=== PATIENT | female | born 1955 | race Caucasian/White ===

== ENCOUNTER 2017-08-17 06:03 | Day surgery (SDC) | payer MEDICARE, MEDICAID ==
[2017-08-16 17:27] VITALS: BMI 21.2
[2017-08-17] MEDS ORDERED: Heparin 10,000 UNITS/1 ML VIAL ONE (06:41)
[2017-08-17] MEDS ORDERED: Diazepam 5 MG TAB ONE (06:56)
[2017-08-17] MEDS ORDERED: Midazolam HCl 2 mg/2 ml Vial ONE (07:17)
[2017-08-17] MEDS ORDERED: Fentanyl 100 MCG/2 ML VIAL ONE (07:19)
--- NOTE | 2017-08-17 07:21 | PRG ---
DATE OF SERVICE: 08/17/2017 HISTORY OF PRESENT ILLNESS: Ms. Love is scheduled for angiography today. There have been multiple d elays in her procedure due to multiple reasons. She initially came with a creatinine of 2.3 and not felt to be appropriate with proceeding with angiography. She then did not show for hydration. She w as also seen and evaluated by Nephrology for renal insufficiency. She then came in recently with a h emoglobin of 8.5 and again was postponed. Her toe continues to worsen. It was decided to proceed wi th angiography despite a hemoglobin less than 9. RECOMMENDATIONS: I discussed the procedure in full detail with Ms. Love. The risks included, but li mited to , stroke, [place], need for emergency surgery, loss of limb, bleeding, and infection, as wel l as a reaction to medication. All questions were answered. Also the risks of worsening renal contr ast nephropathy and need for transfusion. She appears better have a completely occluded left iliac a rtery with severe stenosis of the right iliac artery. The plan is to proceed with intervention of th e right iliac artery to increase perfusion. Unfortunately, she may likely lose her toe. She also co ntinues to smoke.
--- NOTE | 2017-08-17 08:30 | OP ---
DATE OF PROCEDURE: 08/17/2017 PREPROCEDURE DIAGNOSIS: Nonhealing ulcer. POST-PROCEDURE DIAGNOSIS: Severe peripheral vascular disease. PROCEDURE: 1. Aortogram. 2. Bilateral aortofemoral runoff. COMPLICATIONS: None. ESTIMATED BLOOD LOSS: Less than 10 mL. PROCEDURE IN DETAIL: The patient was prepped and draped in the sterile fashion. Accessing the right femoral artery under ultrasound guidance. Micropuncture was then plugged. A 5-Palestinian sheath was placed. FINDINGS: Aorta has no significant stenosis or aneurysm. There was significant calcification presen t. Right lower extremity, the common iliac and common femoral artery had no significant disease. The SF A has a focal 90% lesion in the proximal region. There is otherwise less than 50% stenosis of the SF A, popliteal artery. There is poor runoff noted to the infrapopliteal region. Left lower extremity - there is 100% occlusion of the left external iliac artery. Patient with nonhealing ulcer to the right toe. Initial CT scan did suggest significant stenosis pre sent to the common iliac artery which was not present on angiography. There was no significant gradi ent present. A few options present. May consider a popliteal approach versus a radial approach, alt joan the radial approach this is unlikely long enough for intervention. Popliteal approach would be the most appropriate. We will also consider CV Surgery consultation to assess toe.
[2017-08-17] MEDS ORDERED: Diazepam 5 MG TAB PO SCH (11:00)
[2017-08-17] MEDS ORDERED: traMADol HCl 50 MG TAB ONE (11:13)
[2017-08-17] MEDS ORDERED: Nitroglycerin 0.4 MG TAB (25 Tab Bottle) SL PRN (11:56)
[2017-08-17] MEDS ORDERED: Sodium Chloride 0.9% 1,000 ML IV SCH (11:56)
[2017-08-17] MEDS ORDERED: traMADol HCl 50 MG TAB PO PRN (11:56)
[2017-08-17] MEDS ORDERED: Acetaminophen/Codeine 30-300mg Tablet PO PRN ×2 (11:56)
[2017-08-17 12:50] LABS: Hemoglobin A1c 4.8 % (4.0-6.0)
[2017-08-17 12:53] LABS: #Eosinphils 0.1 thou/uL (0.0-0.7); #Lymphocytes 1.1 thou/uL (1.20-3.40); #Monocytes 0.4 thou/uL (0.11-0.59); #Neutrophils 4.2 thou/uL (1.40-6.50); %Basophils 0.6 % (0.0-1.0); %Eosinophils 2.1 % (0.0-10.0); %Lymphocytes 18.2 % (21.0-51.0); Hematocrit 26.2 % (36.0-47.0); Mean Platelet Volume 8.8 fL (7.4-10.4); Red Blood Cell (RBC) Count 2.78 mill/uL (4.20-5.40); White Blood Cell (WBC) Count 5.8 thou/uL (4.8-10.8)
[2017-08-17 13:08] LABS: Anion Gap 13 mmol/L (10-20); BUN (Urea Nitrogen) 25 mg/dL (9.8-20.1); Calc. Creatinine Clearance 44 mL/min (70-130); Calcium 8.1 mg/dL (7.8-10.44); Carbon Dioxide 20 mmol/L (23-31); Chloride 110 mmol/L (98-107); Estimated GFR-MDRD 49
[2017-08-17] MEDS ORDERED: Iopamidol 370 76% 100 ML VIAL ONE (17:30)
--- NOTE | 2017-08-21 08:42 | EKG ---
Test Reason : PREOP Blood Pressure : / mmHG Vent. Rate : 045 BPM Atrial Rate : 045 BPM P-R Int : 160 ms QRS Dur : 090 ms QT Int : 502 ms P-R-T Axes : 064 034 045 degrees QTc Int : 434 ms Marked sinus bradycardia Abnormal ECG When compared with ECG of 01-NOV-2016 13:22, Criteria for Septal infarct are no longer Present T wave amplitude has increased in Anterolateral leads Confirmed by Kendal RODARTE ([id number]) on 08/21/2017 8:41:33 AM Referred By: DAWIT Confirmed By:Kendal RODARTE
== END 2017-08-17 13:05 | disposition home or self-care (01) ==
LOC: CCL 06:03
PROVIDERS: ATTEND Internal Medicine Cardiovascular Disease
DX: E11.51 Type 2 diabetes mellitus with diabetic peripheral angiopathy without gangrene (principal); E11.621 Type 2 diabetes mellitus with foot ulcer; L97.519 Non-pressure chronic ulcer of other part of right foot with unspecified severity; E78.5 Hyperlipidemia, unspecified; I10 Essential (primary) hypertension; F31.9 Bipolar disorder, unspecified; D50.9 Iron deficiency anemia, unspecified; J44.9 Chronic obstructive pulmonary disease, unspecified; E03.9 Hypothyroidism, unspecified; M81.0 Age-related osteoporosis without current pathological fracture; R32 Unspecified urinary incontinence; K21.9 Gastro-esophageal reflux disease without esophagitis; Z79.84 Long term (current) use of oral hypoglycemic drugs; Z79.899 Other long term (current) drug therapy; Z91.040 Latex allergy status; Z88.0 Allergy status to penicillin; Z98.84 Bariatric surgery status; Z98.890 Other specified postprocedural states; Z87.891 Personal history of nicotine dependence; Z86.73 Personal history of transient ischemic attack (TIA), and cerebral infarction without residual deficits; I70.245 Atherosclerosis of native arteries of left leg with ulceration of other part of foot
CPT/HCPCS: 75630; 75710; 76942; 80048; 83036; 85025; 93005; C1769; 93010; 99152; J1644; J2250; J3010

== ENCOUNTER 2017-08-22 07:53 | Inpatient (IN) | payer MEDICARE, MEDICAID ==
--- NOTE | 2017-08-17 12:31 | HP ---
HISTORY OF PRESENT ILLNESS: This is a 62-year-old lady who lives alone and has had a nonhealing woun d on her right great toe for about 2 months for which she has seen Wound Care. She was referred to [facility] and a CT angiogram was done showing an occluded left common iliac and external iliac art ananya as well as a right superficial femoral artery occlusion. She was scheduled and canceled for allan ography on several occasions either due to elevated creatinine or significant anemia. She ultimately underwent angiography today demonstrating heavily calcified subtotal occlusion of the proximal right SFA. PAST MEDICAL HISTORY: Includes bipolar disorder, hypertension, diabetes mellitus, dyslipidemia. Oth erwise, she has had echocardiography showing EF of 55% with aortic valve sclerosis. She has had a ne gative stress test, but this was about 10 years ago. She has a history of morbid obesity for which s he has undergone gastric bypass. She has hypothyroidism, some urinary incontinence, chronic anemia. She is followed by Dr. Tim Link. SOCIAL HISTORY: She has not smoked since 2003. She lives alone, but has 2 children in the area. ALLERGIES: PENICILLIN and LATEX. PHYSICAL EXAMINATION: GENERAL: Pleasant lady in no distress. VITAL SIGNS: Blood pressure 100. Heart rate 60, recorded height 6 foot 5. She appears to weigh abo ut 200 pounds. NECK: Without carotid bruits. LUNGS: Clear to auscultation. CARDIAC: Regular rate and rhythm with a systolic murmur across the precordium. ABDOMEN: Obese, nontender with no masses. EXTREMITIES: She has a palpable femoral pulse on the right with a dressing and an absent left femora l pulse. She has no palpable distal pulses. She has dorsalis pedis pulses that are biphasic bilater ally and she has an ulcer on her great toe with some surrounding blue hue in the forefoot in this reg ion. It is very tender to palpation. MEDICATIONS: Include Toviaz 4 mg extended release once a day, levothyroxine 25 mcg daily, valacyclov ir 500 mg daily, rivastigmine 6 mg b.i.d., memantine 10 mg b.i.d., Lyrica 75 mg a day, Dexilant 60 mg daily, Crestor 5 at bedtime, carbidopa/levodopa 25/100 daily, amlodipine 10 a day, alendronate 70 mg weekly, Advair inhaler b.i.d., Latuda 40 mg daily. PLAN: After review of the films, it appears the patient would benefit from a right fem to super haleigh culate popliteal artery bypass. Her runoff appears adequate on her CT angiogram, it is not well visu alized on her normal angiogram. Informed consent has been obtained.
[2017-08-17 16:01] VITALS: BMI 21.2
[2017-08-22 08:51] LABS: #Lymphocytes 0.7 thou/uL (1.20-3.40); #Monocytes 0.4 thou/uL (0.11-0.59); #Neutrophils 6.2 thou/uL (1.40-6.50); %Basophils 0.1 % (0.0-1.0); %Eosinophils 0.5 % (0.0-10.0); %Lymphocytes 9.7 % (21.0-51.0); %Monocytes 5.5 % (0.0-10.0); Hematocrit 35.7 % (36.0-47.0); Mean Platelet Volume 8.6 fL (7.4-10.4); Red Blood Cell (RBC) Count 3.79 mill/uL (4.20-5.40); White Blood Cell (WBC) Count 7.3 thou/uL (4.8-10.8)
[2017-08-22 09:09] LABS: Anion Gap 12 mmol/L (10-20); BUN (Urea Nitrogen) 26 mg/dL (9.8-20.1); Calc. Creatinine Clearance 43 mL/min (70-130); Calcium 8.5 mg/dL (7.8-10.44); Carbon Dioxide 21 mmol/L (23-31); Chloride 110 mmol/L (98-107); Estimated GFR-MDRD 48; Hemoglobin A1c 4.7 % (4.0-6.0)
[2017-08-22] MEDS ORDERED: Protamine Sulfate 50 MG/5 ML VIAL ONE (09:13)
[2017-08-22] MEDS ORDERED: Heparin 5,000 UNITS/ML VIAL ONE (09:13)
[2017-08-22] MEDS ORDERED: Levofloxacin 500 mg/D5W 100 ml Premix Bag ONE (09:18)
[2017-08-22] MEDS ORDERED: Clindamycin/D5W 600 mg/50 ml Premix Bag ONE (09:18)
[2017-08-22] MEDS ORDERED: Fentanyl 100 MCG/2 ML VIAL ONE ×6 (09:32→16:13)
[2017-08-22] MEDS ORDERED: Promethazine HCl 25 MG/ML VIAL SLOW IVP PRN (13:27)
[2017-08-22] MEDS ORDERED: Ondansetron HCl/PF 4 MG/2 ML Vial IVP PRN ×2 (13:27→15:16)
[2017-08-22] MEDS ORDERED: Promethazine HCl 25 MG/ML VIAL IM PRN (13:27)
[2017-08-22] MEDS ORDERED: hydrALAZINE 20 MG/ML VIAL SLOW IVP PRN (13:29)
[2017-08-22] MEDS ORDERED: Heparin 10,000 UNITS/ 10 ML VIAL ONE (14:06)
[2017-08-22] MEDS ORDERED: Labetalol HCl 100 MG/20 ML VIAL ONE (14:06)
[2017-08-22] MEDS ORDERED: PHENYLEPHRINE-NS 100 MCG/ML 10 ML SYRINGE ONE (14:06)
[2017-08-22] MEDS ORDERED: Glycopyrrolate 0.2 MG/ML 5 ML SYRINGE ONE (14:06)
[2017-08-22] MEDS ORDERED: Propofol 200 MG/20 ML VIAL ONE (14:06)
[2017-08-22] MEDS ORDERED: ePHEDrine/0.9% NaCl/PF SYRINGE 50 mg/10 ml ONE (14:06)
[2017-08-22] MEDS ORDERED: Lidocaine 1% PF 5 ML VIAL ONE (14:06)
--- NOTE | 2017-08-22 14:11 | OP ---
DATE OF SERVICE: 08/22/2017 PREOPERATIVE DIAGNOSIS: Nonhealing wounds, right foot. POSTOPERATIVE DIAGNOSIS: Nonhealing wounds, right foot. PROCEDURE: Right femoral to suprageniculate popliteal artery bypass with reversed saphenous vein. SURGEON: Kingsley Alcaraz M.D. ANESTHESIA: General. ESTIMATED BLOOD LOSS: 100. DESCRIPTION OF PROCEDURE: After adequate anesthesia had been obtained, ultrasound was used to louise th e vein. An incision was made just above the knee and endovascular vein harvest was performed. Commo n femoral artery was then isolated as well as the trunks of 2 large profunda vessels. Calcification was heavy in the distal common femoral artery and this was avoided. The popliteal artery was exposed above the knee and carried down to about the level of the knee. The vein was then treated with liga tion of the branches and then brought through its tunnel and the proximal anastomosis performed to th e common femoral artery just lateral to a prior puncture site that had a ProGlide suture. Following completion of this, distal anastomosis was performed to a popliteal artery that did have some calcifi ed plaque at the site of anastomosis. Following completion of this, it should be noted that the lanec ent had been given 5000 units of heparin. There was a good pulse in the graft and the wounds were th en irrigated and closed in layers.
[2017-08-22] MEDS ORDERED: Sodium Chloride 0.9% 1,000 ML IV SCH (15:16)
[2017-08-22] MEDS ORDERED: Acetaminophen 325 MG TAB PO PRN (15:16)
[2017-08-22] MEDS ORDERED: Insulin Regular 300 UNITS/3 ML VIAL SC PRN (15:16)
[2017-08-22] MEDS ORDERED: Morphine PF 1 MG/ML SYR IVP PRN (15:46)
--- NOTE | 2017-08-22 18:00 | PDOC.PN ---
- Subjective Encounter Start Date: 08/22/17 Encounter Start Time: 17:56 Pt seen for management of medical comorbidities, including hypertension. Denies chest pain, shortness of breath, fevers or chills. - Objective MAR Reviewed: Yes Vital Signs & Weight: Weight Weight 120 lb Result Diagrams: 08/22/17 08:42 08/22/17 08:42 Additional Labs: Accuchecks 08/22/17 13:46 POC Glucose 73 Phys Exam - Physical Examination Constitutional: NAD HEENT: moist MMs, sclera anicteric, oral pharynx no lesions Neck: supple Respiratory: no wheezing, no rales, no rhonchi, clear to auscultation bilateral Cardiovascular: RRR Gastrointestinal: soft, non-tender Blackened R toenailbeds Neurological: moves all 4 limbs Psychiatric: normal affect Deviation from normal: erythema over R distal foot, skin tear over l shoulder Dx/Plan (1) HTN (hypertension) Code(s): I10 - ESSENTIAL (PRIMARY) HYPERTENSION Status: Chronic (2) Diabetes mellitus Code(s): E11.9 - TYPE 2 DIABETES MELLITUS WITHOUT COMPLICATIONS Status: Chronic (3) Dyslipidemia Code(s): E78.5 - HYPERLIPIDEMIA, UNSPECIFIED Status: Chronic (4) Hypothyroidism Code(s): E03.9 - HYPOTHYROIDISM, UNSPECIFIED Status: Chronic - Plan PT/OT, out of bed/ambulate * .Monitor vital signs, titrate antihypertensives as needed. * Had a lengthy discussion with pt re: diabetes mellitus management. Pt intiially did not wish to have accuchecks. Her HbContinue statin.PT/OTA1c is 4.7. Explained to pt that her blood sugars may be high during hospitalization ( due to stress hormone release) and it is recommended to control blood sugars to promote healing. Pt agreeable for accuchecks, check for 24h and reassess. * Continue synthroid. * PT/OT * Review of Systems - Review of Systems Constitutional: negative: Fever, Chills, Sweats Respiratory: negative: Cough, Dry, Shortness of Breath, Hemoptysis, SOB with Excertion, Pleuritic Pain, Sputum, Wheezing Cardiovascular: negative: Chest Pain, Palpitations, Orthopnea, Paroxysmal Noc. Dyspnea, Edema, Light Headedness Musculoskeletal: Leg Pain - Medications/Allergies Allergies/Adverse Reactions: Allergies Allergy/AdvReac Type Severity Reaction Status Date / Time latex Allergy Verified 08/16/17 17:26 Penicillins Allergy Verified 08/16/17 17:26 Medications: Current Medications Acetaminophen (Tylenol) 650 mg PO Q4H PRN PRN Reason: Fever > 101.5,TIMMONS, or mild pain Hydrocodone Bitart/Acetaminophen ([place] 5/325) 1 tab PO Q4H PRN PRN Reason: Mild Pain (1-3) Albuterol/Ipratropium (Duoneb) 3 ml NEB S1IN-VT PRN PRN Reason: Wheezing Amlodipine Besylate (Norvasc) 10 mg PO DAILY [facility] Aspirin (Aspirin Chewable) 81 mg PO QAM [facility] Bupropion HCl (Wellbutrin Sr) 100 mg PO BID [facility] Carbidopa/Levodopa (Sinemet 25-100) 1 tab PO TID [facility] Hydralazine HCl (Apresoline) 10 mg SLOW IVP Q15MIN PRN PRN Reason: SBP Greater Than 170 Clindamycin Phosphate/Dextrose (600 mg/ Device) 50 mls @ 100 mls/hr IVPB 0400, 1000,1600,2200 [facility] Stop: 08/23/17 10:29 Levofloxacin 500 mg/ Device 100 mls @ 100 mls/hr IVPB Q24HR [facility] Sodium Chloride (Normal Saline 0.9%) 1,000 mls @ 50 mls/hr IV .Q20H [facility] Insulin Human Regular (Humulin R) 0 units SC .MILD SLIDING SCALE PRN PRN Reason: Mild Correctional Scale Levothyroxine Sodium (Synthroid) 25 mcg PO DAILY [facility] Methylphenidate HCl (Ritalin) 10 mg PO BID [facility] Morphine Sulfate/Sodium Chloride (Morphine 0.9% Nacl Pf 2 Mg/2ml) 2 mg IVP Q4H PRN PRN Reason: PAIN-MOD/SEV Ondansetron HCl (Zofran) 4 mg IVP Q6H PRN PRN Reason: Nausea/Vomiting Pantoprazole Sodium (Protonix) 40 mg PO DAILY [facility] Vortioxetine Hydrobromide [ Trintellix] 20 Mg Tab 0 each PO DAILY [facility] Empagliflozin [ (Jardiance] 25 Mg Tab) 0 each PO DAILY [facility] Polyethylene Glycol (Miralax) 17 gm PO DAILY [facility] Pregabalin (Lyrica) 75 mg PO TID [facility] Rivastigmine Tartrate (Exelon) 6 mg PO BID-WM [facility] Rosuvastatin Calcium (Crestor) 5 mg PO DAILY [facility] Tramadol HCl (Ultram) 50 mg PO Q6H PRN PRN Reason: Mild Breakthrough Pain
[2017-08-22] MEDS: traMADol HCl 50 MG TAB PO PRN (18:13)
[2017-08-22] MEDS: Morphine 2 mg/2ml in 0.9% NaCl PF SYRINGE IVP PRN (18:13)
[2017-08-22] MEDS: Clindamycin/D5W 600 MG in Premix Bag 1 BAG IVPB SCH ×2 (18:14→23:08)
[2017-08-22] MEDS: Rivastigmine Tartrate 1.5 MG CAP PO SCH (18:14)
[2017-08-22] MEDS: Pregabalin 75 MG CAP PO SCH (20:37)
[2017-08-22] MEDS: Carbidopa/Levodopa 25-100 mg Tablet PO SCH (20:38)
[2017-08-22] MEDS: Bupropion 100 MG SR TAB PO SCH (20:38)
[2017-08-22] MEDS ORDERED: BUSPIRONE HCL PO SCH (21:00)
[2017-08-22] MEDS ORDERED: Simvastatin 20 MG TAB PO SCH (21:00)
[2017-08-22] MEDS: TROSPIUM 20 MG TABLET PO SCH (21:01)
[2017-08-22 22:13] LABS: Anion Gap 9 mmol/L (10-20); BUN (Urea Nitrogen) 23 mg/dL (9.8-20.1); Calc. Creatinine Clearance 42 mL/min (70-130); Calcium 7.9 mg/dL (7.8-10.44); Carbon Dioxide 24 mmol/L (23-31); Chloride 112 mmol/L (98-107); Estimated GFR-MDRD 47; Magnesium 1.9 mg/dL (1.6-2.6)
[2017-08-23] MEDS ORDERED: Cyclobenzaprine 10 MG TAB PO PRN (00:30)
[2017-08-23] MEDS: Morphine 2 mg/2ml in 0.9% NaCl PF SYRINGE IVP PRN ×3 (01:00→09:24)
[2017-08-23] MEDS: traMADol HCl 50 MG TAB PO PRN (02:05)
[2017-08-23] MEDS: HYDROcodone/Acetaminophen 5/325 mg Tablet PO PRN ×2 (03:52→08:23)
[2017-08-23] MEDS: Clindamycin/D5W 600 MG in Premix Bag 1 BAG IVPB SCH ×2 (03:53→10:03)
[2017-08-23] MEDS: Mometasone/Formoterol 120 PUFF INHALER INH SCH ×2 (07:16→19:00)
[2017-08-23] MEDS: Rivastigmine Tartrate 1.5 MG CAP PO SCH ×2 (08:21→17:16)
[2017-08-23] MEDS: Bupropion 100 MG SR TAB PO SCH ×2 (08:21→21:44)
[2017-08-23] MEDS: Polyethylene Glycol 3350 17 GM Packet PO SCH ×2 (08:22→08:38)
[2017-08-23] MEDS: Lurasidone HCl 40 MG TABLET PO SCH (08:22)
[2017-08-23] MEDS: Levothyroxine Sodium 25 MCG TAB PO SCH (08:22)
[2017-08-23] MEDS: Pregabalin 75 MG CAP PO SCH ×3 (08:23→20:08)
[2017-08-23] MEDS: Carbidopa/Levodopa 25-100 mg Tablet PO SCH (08:24)
[2017-08-23] MEDS ORDERED: FLU VACC QS2017-18 36 mo. & older 0.5 ML SYRINGE IM ONE (09:00)
[2017-08-23] MEDS ORDERED: Amlodipine 10 MG TAB PO SCH (09:00)
[2017-08-23] MEDS: busPIRone HCl 10 MG TAB PO SCH ×2 (09:22→20:08)
[2017-08-23] MEDS: TROSPIUM 20 MG TABLET PO SCH ×2 (09:57→20:30)
--- NOTE | 2017-08-23 10:33 | PDOC.PN ---
- Subjective Encounter Start Date: 08/23/17 Encounter Start Time: 08:20 -: old records requested/rev Patient seen and examined. No new complaints. No overnight events - Objective MAR Reviewed: Yes Vital Signs & Weight: Vital Signs (12 hours) Temp Pulse Resp BP Pulse Ox 08/23/17 08:23 98.2 F 60 14 98 08/23/17 07:47 98.2 F 60 14 171/82 H 98 08/23/17 04:56 98.1 F 66 20 100 08/23/17 00:00 98.1 F 68 18 130/69 Weight Weight 120 lb I&O: 08/22/17 08/23/17 08/24/17 06:59 06:59 06:59 Intake Total 999 Output Total 2049 Balance -1050 Result Diagrams: 08/22/17 08:42 08/22/17 21:45 Additional Labs: Accuchecks 08/23/17 08/22/17 08/22/17 06:22 21:52 13:46 POC Glucose 178 H 163 H 73 Phys Exam - Physical Examination Constitutional: NAD HEENT: PERRLA, moist MMs, sclera anicteric Neck: no JVD, supple Respiratory: no wheezing, no rales, no rhonchi Cardiovascular: RRR, no rub SM+ Gastrointestinal: soft, non-tender, no distention, positive bowel sounds Musculoskeletal: no edema, pulses present right great toe tip black Neurological: non-focal, normal sensation Psychiatric: normal affect, A&O x 3 Skin: no rash, normal turgor Dx/Plan (1) S/P femoral-popliteal bypass surgery Code(s): Z95.828 - PRESENCE OF OTHER VASCULAR IMPLANTS AND GRAFTS Status: Acute (2) Anemia, normocytic normochromic Code(s): D64.9 - ANEMIA, UNSPECIFIED Status: Chronic (3) Anxiety and depression Code(s): F41.8 - OTHER SPECIFIED ANXIETY DISORDERS Status: Chronic (4) Dementia Code(s): F03.90 - UNSPECIFIED DEMENTIA WITHOUT BEHAVIORAL DISTURBANCE Status: Chronic (5) Diabetes mellitus Code(s): E11.9 - TYPE 2 DIABETES MELLITUS WITHOUT COMPLICATIONS Status: Chronic (6) Dyslipidemia Code(s): E78.5 - HYPERLIPIDEMIA, UNSPECIFIED Status: Chronic (7) GERD (gastroesophageal reflux disease) Code(s): K21.9 - GASTRO-ESOPHAGEAL REFLUX DISEASE WITHOUT ESOPHAGITIS Status: Chronic (8) HTN (hypertension) Code(s): I10 - ESSENTIAL (PRIMARY) HYPERTENSION Status: Chronic (9) Hypothyroidism Code(s): E03.9 - HYPOTHYROIDISM, UNSPECIFIED Status: Chronic (10) Parkinson disease Code(s): G20 - PARKINSON'S DISEASE Status: Chronic - Plan cont current plan of care * continue selected home meds * medication reviewed as below * symptomatic treatment * surgical site clean and healthy * wound care * post op care * overall doing well. Review of Systems - Review of Systems ENT: negative: Ear Pain, Ear Discharge, Nose Pain, Nose Discharge, Nose Congestion, Mouth Pain, Mouth Swelling, Throat Pain, Throat Swelling, Other Respiratory: negative: Cough, Dry, Shortness of Breath, Hemoptysis, SOB with Excertion, Pleuritic Pain, Sputum, Wheezing Cardiovascular: negative: Chest Pain, Palpitations, Orthopnea, Paroxysmal Noc. Dyspnea, Edema, Light Headedness, Other Gastrointestinal: negative: Nausea, Vomiting, Abdominal Pain, Diarrhea, Constipation, Melena, Hematochezia, Other Genitourinary: negative: Dysuria, Frequency, Incontinence, Hematuria, Retention , Other Musculoskeletal: negative: Neck Pain, Shoulder Pain, Arm Pain, Back Pain, Hand Pain, Leg Pain, Foot Pain, Other Skin: negative: Rash, Lesions, Jamel, Bruising, Other - Medications/Allergies Allergies/Adverse Reactions: Allergies Allergy/AdvReac Type Severity Reaction Status Date / Time latex Allergy Verified 08/16/17 17:26 Penicillins Allergy Verified 08/16/17 17:26 Medications: Current Medications Acetaminophen (Tylenol) 650 mg PO Q4H PRN PRN Reason: Fever > 101.5,TIMMONS, or mild pain Hydrocodone Bitart/Acetaminophen ([place] 5/325) 1 tab PO Q4H PRN PRN Reason: Mild Pain (1-3) Last Admin: 08/23/17 08:23 Dose: 1 tab Albuterol/Ipratropium (Duoneb) 3 ml NEB [id number] PRN PRN Reason: Wheezing Alendronate Sodium (Fosamax) 70 mg PO Q7D@0600 [facility] Aspirin (Aspirin Chewable) 81 mg PO QAM [facility] Last Admin: 08/23/17 08:24 Dose: 81 mg Bupropion HCl (Wellbutrin Sr) 100 mg PO BID [facility] Last Admin: 08/23/17 08:21 Dose: 100 mg Buspirone HCl (Buspar) 45 mg PO BID [facility] Last Admin: 08/23/17 09:22 Dose: 45 mg Carbidopa/Levodopa (Sinemet 25-100) 1 tab PO TID [facility] Last Admin: 08/23/17 08:24 Dose: 1 tab Cyclobenzaprine HCl (Flexeril) 5 mg PO Q8H PRN PRN Reason: Muscle Spasm Last Admin: 08/23/17 00:46 Dose: 5 mg Hydralazine HCl (Apresoline) 10 mg SLOW IVP Q15MIN PRN PRN Reason: SBP Greater Than 170 Levofloxacin 500 mg/ Device 100 mls @ 100 mls/hr IVPB Q24HR [facility] Last Admin: 08/23/17 08:22 Dose: 100 mls Insulin Human Regular (Humulin R) 0 units SC .MILD SLIDING SCALE PRN PRN Reason: Mild Correctional Scale Levothyroxine Sodium (Synthroid) 25 mcg PO DAILY [facility] Last Admin: 08/23/17 08:22 Dose: 25 mcg Lurasidone HCl (Latuda) 40 mg PO DAILY [facility] Last Admin: 08/23/17 08:22 Dose: 40 mg Memantine (Namenda) 10 mg PO BID [facility] Last Admin: 08/23/17 08:24 Dose: 10 mg Methylphenidate HCl (Ritalin) 10 mg PO BID [facility] Last Admin: 08/23/17 09:24 Dose: 10 mg Mometasone Furoate/Formoterol Fumar (Dulera 200 Mcg/5 Mcg Inhaler) 2 puff INH BID-RT [facility] Last Admin: 08/23/17 07:16 Dose: 2 puff Morphine Sulfate/Sodium Chloride (Morphine 0.9% Nacl Pf 2 Mg/2ml) 2 mg IVP Q4H PRN PRN Reason: PAIN-MOD/SEV Last Admin: 08/23/17 09:24 Dose: 2 mg Ondansetron HCl (Zofran) 4 mg IVP Q6H PRN PRN Reason: Nausea/Vomiting Pantoprazole Sodium (Protonix) 40 mg PO DAILY [facility] Last Admin: 08/23/17 08:24 Dose: 40 mg Vortioxetine Hydrobromide [ Trintellix] 20 Mg Tab 0 each PO DAILY [facility] Empagliflozin [ (Jardiance] 25 Mg Tab) 0 each PO DAILY [facility] Polyethylene Glycol (Miralax) 17 gm PO DAILY [facility] Last Admin: 08/23/17 08:38 Dose: Not Given Pregabalin (Lyrica) 75 mg PO TID [facility] Last Admin: 08/23/17 08:23 Dose: 75 mg Rivastigmine Tartrate (Exelon) 6 mg PO BID-WM [facility] Last Admin: 08/23/17 08:21 Dose: 6 mg Rosuvastatin Calcium (Crestor) 5 mg PO DAILY [facility] Last Admin: 08/23/17 09:57 Dose: 5 mg Tramadol HCl (Ultram) 50 mg PO Q6H PRN PRN Reason: Mild Breakthrough Pain Last Admin: 08/23/17 02:05 Dose: 50 mg Trospium (Trospium Chloride) 20 mg PO BID [facility] Last Admin: 08/23/17 09:57 Dose: 20 mg Valacyclovir HCl (Valtrex) 500 mg PO DAILY [facility] Last Admin: 08/23/17 08:22 Dose: 500 mg
[2017-08-23] MEDS ORDERED: Nitroglycerin 0.4 MG TAB (25 Tab Bottle) SL PRN (12:32)
[2017-08-23] MEDS ORDERED: HYDROcodone/Acetaminophen 10/325 mg Tablet PO PRN (12:32)
[2017-08-23] MEDS ORDERED: Diphenoxylate HCl/Atropine Tablet PO PRN (12:32)
[2017-08-23] MEDS ORDERED: Non-Formulary Item 1 EACH (Tizanidine Hcl [Tizanidine Hcl] 4 MG) PO PRN (12:32)
[2017-08-23] MEDS ORDERED: Acetaminophen/Codeine 30-300mg Tablet PO PRN (12:32)
[2017-08-23] MEDS ORDERED: ALPRAZolam 1 MG TAB PO PRN (14:09)
[2017-08-23] MEDS ORDERED: tiZANidine HCl 4 MG TAB PO PRN (14:16)
[2017-08-23] MEDS ORDERED: Morphine PF 1 MG/ML SYR IV PRN (14:38)
[2017-08-23] MEDS: Carbidopa/Levodopa 25-250 mg Tablet PO SCH ×2 (14:55→20:10)
[2017-08-23] MEDS: hydrOXYzine 25 MG TAB PO SCH ×2 (14:56→20:10)
[2017-08-23] MEDS ORDERED: Fluticasone Propionate Nasal Spray 16 gm Bottle NASAL PRN (15:04)
[2017-08-23] MEDS: HYDROcodone/Acetaminophen 10/325 mg Tablet PO PRN (18:17)
[2017-08-23] MEDS: Metoprolol Tartrate 25 MG TAB PO SCH (20:11)
[2017-08-23] MEDS: Morphine 4 MG/ML VIAL SLOW IVP PRN (20:31)
[2017-08-23] MEDS ORDERED: METHYLPHENIDATE HCL 20 MG PO SCH (21:00)
[2017-08-24] MEDS: HYDROcodone/Acetaminophen 10/325 mg Tablet PO PRN ×2 (00:30→16:54)
[2017-08-24] MEDS: Morphine 4 MG/ML VIAL SLOW IVP PRN ×2 (02:08→08:21)
[2017-08-24] MEDS: Levothyroxine Sodium 25 MCG TAB PO SCH (08:12)
[2017-08-24] MEDS: busPIRone HCl 10 MG TAB PO SCH (08:12)
[2017-08-24] MEDS: Pregabalin 75 MG CAP PO SCH ×2 (08:13→15:03)
[2017-08-24] MEDS: Metoprolol Tartrate 25 MG TAB PO SCH (08:13)
[2017-08-24] MEDS: Carbidopa/Levodopa 25-250 mg Tablet PO SCH ×2 (08:13→15:04)
[2017-08-24] MEDS: Rivastigmine Tartrate 1.5 MG CAP PO SCH ×2 (08:14→17:39)
[2017-08-24] MEDS: hydrOXYzine 25 MG TAB PO SCH ×2 (08:14→15:04)
[2017-08-24] MEDS: Lurasidone HCl 40 MG TABLET PO SCH (08:14)
[2017-08-24] MEDS: Polyethylene Glycol 3350 17 GM Packet PO SCH (08:16)
[2017-08-24] MEDS: Bupropion 100 MG SR TAB PO SCH (08:21)
[2017-08-24] MEDS: Mometasone/Formoterol 120 PUFF INHALER INH SCH (08:49)
[2017-08-24] MEDS ORDERED: SAXAGLIPTIN HCL 2.5 MG PO SCH (09:00)
[2017-08-24] MEDS ORDERED: Saxagliptin Hcl [Onglyza] 2.5 MG PO SCH (09:00)
[2017-08-24] MEDS ORDERED: Alogliptin Benzoate 25 MG TABLET PO SCH (09:00)
[2017-08-24] MEDS ORDERED: Insulin Detemir 100 UNITS/ML 20 UNITS in Pre-Filled Syringe 1 EACH SC SCH (09:00)
[2017-08-24] MEDS ORDERED: Montelukast Sodium 10 mg Tablet PO SCH (09:00)
[2017-08-24] MEDS ORDERED: INSULIN GLARGINE HUM REC ANLOG 20 UNIT SQ SCH (09:00)
[2017-08-24] MEDS ORDERED: Amlodipine 5 MG TAB PO SCH (09:00)
[2017-08-24] MEDS: TROSPIUM 20 MG TABLET PO SCH (11:45)
--- NOTE | 2017-08-24 12:05 | PDOC.PN ---
- Subjective Encounter Start Date: 08/24/17 Encounter Start Time: 10:00 Subjective: no sob or chest pain -: wants 2 tabs of narco, nasal spray and increase freq of xanax - Objective MAR Reviewed: Yes Vital Signs & Weight: Vital Signs (12 hours) Temp Pulse Resp BP BP Pulse Ox 08/24/17 11:56 97.9 F 61 16 98 08/24/17 08:49 79 16 97 08/24/17 08:13 98.1 F 71 18 127/78 96 08/24/17 07:49 98.1 F 71 18 127/78 96 Weight Admit Weight 120 lb Weight 120 lb I&O: 08/23/17 08/24/17 08/25/17 06:59 06:59 06:59 Intake Total 999 2580 Output Total 2049 4603 Balance -1049 Result Diagrams: 08/22/17 08:42 08/22/17 21:45 Additional Labs: Accuchecks 08/24/17 08/23/17 11:26 15:47 POC Glucose 106 135 H Phys Exam - Physical Examination HEENT: PERRLA, moist MMs Neck: no JVD, supple Respiratory: no wheezing, no rales Cardiovascular: RRR murmur+ Gastrointestinal: soft, no distention, positive bowel sounds Musculoskeletal: pulses present right leg has some mild edema at surgical sites Neurological: non-focal, moves all 4 limbs Psychiatric: A&O x 3 Dx/Plan (1) S/P femoral-popliteal bypass surgery Code(s): Z95.828 - PRESENCE OF OTHER VASCULAR IMPLANTS AND GRAFTS Status: Acute Comment: right LE on 08/22/2017 (2) Anemia, normocytic normochromic Code(s): D64.9 - ANEMIA, UNSPECIFIED Status: Chronic (3) Anxiety and depression Code(s): F41.8 - OTHER SPECIFIED ANXIETY DISORDERS Status: Chronic (4) Diabetes mellitus Code(s): E11.9 - TYPE 2 DIABETES MELLITUS WITHOUT COMPLICATIONS Status: Chronic Qualifiers: Diabetes mellitus type: type 2 Diabetes mellitus complication status: with neurologic complications Diabetes mellitus complication detail: with polyneuropathy Diabetes mellitus skilled nursing insulin use: with skilled nursing use Qualified Code(s): E11.42 - Type 2 diabetes mellitus with diabetic polyneuropathy; Z79.4 - halfway (current) use of insulin; Z79.4 - keno terminal operator ( current) use of insulin; Z79.4 - halfway (current) use of insulin; Z79.4 - halfway (current) use of insulin (5) Dyslipidemia Code(s): E78.5 - HYPERLIPIDEMIA, UNSPECIFIED Status: Chronic (6) GERD (gastroesophageal reflux disease) Code(s): K21.9 - GASTRO-ESOPHAGEAL REFLUX DISEASE WITHOUT ESOPHAGITIS Status: Chronic Qualifiers: Esophagitis presence: esophagitis presence not specified Qualified Code(s) : K21.9 - Gastro-esophageal reflux disease without esophagitis (7) HTN (hypertension) Code(s): I10 - ESSENTIAL (PRIMARY) HYPERTENSION Status: Chronic Qualifiers: Hypertension type: essential hypertension Qualified Code(s): I10 - Essential (primary) hypertension (8) Hypothyroidism Code(s): E03.9 - HYPOTHYROIDISM, UNSPECIFIED Status: Chronic Qualifiers: Hypothyroidism type: unspecified Qualified Code(s): E03.9 - Hypothyroidism , unspecified (9) Parkinson disease Code(s): G20 - PARKINSON'S DISEASE Status: Chronic (10) Chronic pain syndrome Code(s): G89.4 - CHRONIC PAIN SYNDROME Status: Chronic (11) Polypharmacy Code(s): Z79.899 - OTHER INTERMEDIATE (CURRENT) DRUG THERAPY Status: Chronic - Plan Pt is already on multiple pain/psychotropic meds -: she is currently on fentanyl patch, narco, morphine, lyrica, ultram -: she is also on ritalin and sinemet -: has amb with PT per patient -: dc plan per CTS advice, she has to keep her surgical site clean * . Pt is at risk for resp failure from polypharmacy, although she has been on them for long time (per patient). Review of Systems - Medications/Allergies Allergies/Adverse Reactions: Allergies Allergy/AdvReac Type Severity Reaction Status Date / Time latex Allergy Verified 08/16/17 17:26 Penicillins Allergy Verified 08/16/17 17:26 Medications: Current Medications Acetaminophen (Tylenol) 650 mg PO Q4H PRN PRN Reason: Fever > 101.5,TIMMONS, or mild pain Acetaminophen/Codeine Phosphate (Tylenol #3) 1 tab PO Q6H PRN PRN Reason: Moderate Pain (4-6) Last Admin: 08/24/17 06:51 Dose: 1 tab Hydrocodone Bitart/Acetaminophen (Montrose 5/325) 1 tab PO Q4H PRN PRN Reason: Mild Pain (1-3) Last Admin: 08/23/17 08:23 Dose: 1 tab Hydrocodone Bitart/Acetaminophen (Montrose 10/325) 1 tab PO Q6H PRN PRN Reason: Pain Last Admin: 08/24/17 00:30 Dose: 1 tab Albuterol/Ipratropium (Duoneb) 3 ml NEB [id number] PRN PRN Reason: Wheezing Alendronate Sodium (Fosamax) 70 mg PO Q7D@0600 [facility] Alogliptin Benzoate (Alogliptin) 12.5 mg PO DAILY [facility] Last Admin: 08/24/17 08:11 Dose: 12.5 mg Alprazolam (Xanax) 2 mg PO QID PRN PRN Reason: Anxiety Last Admin: 08/24/17 00:33 Dose: 2 mg Amlodipine Besylate (Norvasc) 5 mg PO DAILY [facility] Last Admin: 08/24/17 08:13 Dose: 5 mg Aspirin (Aspirin Chewable) 81 mg PO QAM [facility] Last Admin: 08/24/17 08:13 Dose: 81 mg Bupropion HCl (Wellbutrin Sr) 100 mg PO BID [facility] Last Admin: 08/24/17 08:21 Dose: 100 mg Buspirone HCl (Buspar) 45 mg PO BID [facility] Last Admin: 08/24/17 08:12 Dose: 45 mg Carbidopa/Levodopa (Sinemet 25-250) 1 tab PO TID [facility] Last Admin: 08/24/17 08:13 Dose: 1 tab Carisoprodol (Soma) 350 mg PO TID PRN PRN Reason: Muscle Spasm Diphenoxylate HCl/Atropine (Lomotil) 2 tab PO QID PRN PRN Reason: Diarrhea/Loose Stools Fentanyl (Duragesic) 25 mcg TD Q3D@1500 [facility] Last Admin: 08/23/17 14:53 Dose: 25 mcg Fluticasone Propionate (Flonase Nasal Cecil) 0 gm NASAL BID PRN PRN Reason: Congestion Last Admin: 08/23/17 20:05 Dose: 1 spr Fluvoxamine Maleate (Luvox) 100 mg PO HS [facility] Last Admin: 08/23/17 20:10 Dose: 100 mg Hydralazine HCl (Apresoline) 10 mg SLOW IVP Q15MIN PRN PRN Reason: SBP Greater Than 170 Hydroxyzine HCl (Atarax) 25 mg PO TID [facility] Last Admin: 08/24/17 08:14 Dose: 25 mg Levofloxacin 500 mg/ Device 100 mls @ 100 mls/hr IVPB Q24HR [facility] Last Admin: 08/24/17 08:20 Dose: 100 mls Insulin Detemir 20 units/ (Miscellaneous Medication) 0.2 mls @ 0 mls/hr SC QAM [facility] Last Admin: 08/24/17 11:40 Dose: Not Given Insulin Human Regular (Humulin R) 0 units SC .MILD SLIDING SCALE PRN PRN Reason: Mild Correctional Scale Levothyroxine Sodium (Synthroid) 25 mcg PO DAILY [facility] Last Admin: 08/24/17 08:12 Dose: 25 mcg Lurasidone HCl (Latuda) 40 mg PO DAILY [facility] Last Admin: 08/24/17 08:14 Dose: 40 mg Memantine (Namenda) 10 mg PO BID [facility] Last Admin: 08/24/17 08:13 Dose: 10 mg Methylphenidate HCl (Ritalin) 20 mg PO BID [facility] Last Admin: 08/24/17 11:45 Dose: 20 mg Metoprolol Tartrate (Lopressor) 25 mg PO BID [facility] Last Admin: 08/24/17 08:13 Dose: 25 mg Mometasone Furoate/Formoterol Fumar (Dulera 200 Mcg/5 Mcg Inhaler) 2 puff INH BID-RT [facility] Last Admin: 08/24/17 08:49 Dose: 2 puff Montelukast Sodium (Singulair) 10 mg PO DAILY [facility] Last Admin: 08/24/17 08:14 Dose: 10 mg Morphine Sulfate (Morphine) 2 mg SLOW IVP Q4H PRN PRN Reason: PAIN 4-10 Last Admin: 08/24/17 08:21 Dose: 2 mg Nitroglycerin (Nitrostat) 0.4 mg SL Q5MIN PRN PRN Reason: Chest Pain Ondansetron HCl (Zofran) 4 mg IVP Q6H PRN PRN Reason: Nausea/Vomiting Pantoprazole Sodium (Protonix) 40 mg PO DAILY [facility] Last Admin: 08/24/17 08:13 Dose: 40 mg Vortioxetine Hydrobromide [ Trintellix] 20 Mg Tab 0 each PO DAILY [facility] Empagliflozin [ (Jardiance] 25 Mg Tab) 0 each PO DAILY [facility] Polyethylene Glycol (Miralax) 17 gm PO DAILY [facility] Last Admin: 08/24/17 08:16 Dose: Not Given Pregabalin (Lyrica) 75 mg PO TID [facility] Last Admin: 08/24/17 08:13 Dose: 75 mg Rivastigmine Tartrate (Exelon) 6 mg PO BID[facility] Last Admin: 08/24/17 08:14 Dose: 6 mg Rosuvastatin Calcium (Crestor) 5 mg PO QPM [facility] Last Admin: 08/23/17 20:30 Dose: 5 mg Sertraline HCl (Zoloft) 100 mg PO DAILY [facility] Last Admin: 08/24/17 11:45 Dose: 100 mg Sodium Chloride (Flush - Normal Saline) 10 ml IVF Q12HR [facility] Last Admin: 08/24/17 08:16 Dose: 10 ml Sodium Chloride (Flush - Normal Saline) 10 ml IVF PRN PRN PRN Reason: Saline Flush Tizanidine HCl (Zanaflex) 4 mg PO TIDPRN PRN PRN Reason: Pain Tramadol HCl (Ultram) 50 mg PO Q6H PRN PRN Reason: Mild Breakthrough Pain Last Admin: 08/23/17 02:05 Dose: 50 mg Trospium (Trospium Chloride) 20 mg PO BID [facility] Last Admin: 08/24/17 11:45 Dose: 20 mg Valacyclovir HCl (Valtrex) 500 mg PO DAILY [facility] Last Admin: 08/24/17 08:11 Dose: 500 mg
[2017-08-24 16:00] VITALS: BP 114/72; TEMP 98.1
--- NOTE | 2017-08-25 06:05 | DIS ---
HOSPITAL COURSE: Patient was admitted to the hospital on 08/22/2017 where she underwent a right femo ral to popliteal artery bypass with first saphenous vein. Postoperatively, she had excellent Doppler signals in both DP and PT. She had some mild bruising in her leg and was otherwise doing well. She has a medicine list that was not able to be deciphered, and at this time there is no medicine reconc iliation that will be taken care of, and I will not write her any prescriptions due to the polypharma cy that she on. I will leave this up to Dr. Link and she knows what she is supposed to be taking. We will follow her up in 3 to 4 weeks to see if her toe heels or requires further surgical intervent ion. I have discussed wound care with the patient and she understands how to take care of her wounds .
--- NOTE | 2017-08-25 11:29 | PQF ---
DIETER MAY JAMES M MD [id number] [facility] 333 [id number] CLINICAL DOCUMENTATION CLARIFICATION FORM: POST DISCHARGE Please clarify if documented "Occluded" lower extremity arteries can be further specified. Please check appropriate box(s): [ ] Complete occlusion of artery due to [ ] Chronic total occlusion artery due to [ ] Partial occlusion artery due to [ ] Acute occlusion artery due to __ [ ] Other diagnosis [ ] Unable to determine In addition, please specify: Present on Admission (POA): [ ] Yes [ ] No [ ] Unable to determine Please exercise your independent, professional judgment in responding to the clarification form. Thank you H&P; "Occluded Left Common Iliac and External Iliac artery as well as a Right superficial Femoral Artery occlusion". "She underwent angiography today demonstrating heavily calcified subtotal occlusion of the proximal right SFA". "She has a palpable femoral pulse on the right with a dressing and an absent left femoral pulse. She has no palpable distal pulses." "..she has an ulcer on her right great toe with some surrounding blue hue in the forefoot in this region." PROCEDURE; "Right femoral to suprageniculate popliteal artery bypass with reversed saphenous vein." (This form is maintained as a part of the permanent medical record) 2014 [employer] All Rights Reserved [email or web address] [phone] [email or web address]
[2017-08-29] MEDS ORDERED: Alendronate Sodium 70 mg Tablet PO SCH (06:00)
== END 2017-08-24 18:24 | disposition home or self-care (01) | DRG 254 ==
LOC: SURG A 07:53
PROVIDERS: ADMIT Thoracic Surgery (Cardiothoracic Vascular Surgery); ATTEND Thoracic Surgery (Cardiothoracic Vascular Surgery)
PROC: 041K09L Bypass Right Femoral Artery to Popliteal Artery with Autologous Venous Tissue, Open Approach (ICD-10-PCS; principal; 2017-08-22)
DX: I70.235 Atherosclerosis of native arteries of right leg with ulceration of other part of foot (principal); G20 Parkinson's disease; I10 Essential (primary) hypertension; E11.9 Type 2 diabetes mellitus without complications; D64.9 Anemia, unspecified; E03.9 Hypothyroidism, unspecified; L97.519 Non-pressure chronic ulcer of other part of right foot with unspecified severity; I70.202 Unspecified atherosclerosis of native arteries of extremities, left leg; F31.9 Bipolar disorder, unspecified; E78.5 Hyperlipidemia, unspecified; Z23 Encounter for immunization; Z98.84 Bariatric surgery status; R32 Unspecified urinary incontinence; F41.9 Anxiety disorder, unspecified; K21.9 Gastro-esophageal reflux disease without esophagitis; G89.4 Chronic pain syndrome; Z79.899 Other long term (current) drug therapy
CPT/HCPCS: 36415; 36416; 80048; 83036; 83735; 84443; 85025; 86850; 86900; 86901; 90471; 90682; 90732; 93005; 93010; A4216; G0008; G0009; G8978-GP-CJ; G8979-GP-CI; J1642; J1644; J1815; J1956; J2001; J2270; J2704; J2720; J3010; J3490; Q2036

== ENCOUNTER 2017-09-13 12:13 | Inpatient (IN) | payer MEDICARE, MEDICAID ==
[~2017-09-13 12:13] MED LIST: Glycopyrrolate 0.2 MG/ML 5 ML SYRINGE ONE; Ketorolac Tromethamine 30 MG/ML VIAL ONE; Lidocaine 1% PF 5 ML VIAL ONE; Ondansetron HCl/PF 4 MG/2 ML Vial ONE; PROPOFOL 200 MG/20 ML VIAL ONE; ePHEDrine/0.9% NaCl/PF SYRINGE 50 mg/10 ml ONE
[2017-09-13] MEDS ORDERED: Fentanyl 100 MCG/2 ML VIAL ONE ×2 (13:01→15:13)
[2017-09-13] MEDS ORDERED: CEFAZOLIN/Water 2 GM/20 ML SYRINGE ONE (13:11)
[2017-09-13] MEDS ORDERED: Bupivacaine/Epinephrine 0.25% 30 ML VIAL ONE (13:34)
[2017-09-13] MEDS ORDERED: HYDROcodone/Acetaminophen 5/325 mg Tablet ONE (17:12)
[2017-09-13] MEDS ORDERED: busPIRone HCl 5 MG TAB PO SCH (21:00)
[2017-09-13] MEDS ORDERED: Metoprolol Tartrate 25 MG TAB PO SCH (21:00)
[2017-09-13] MEDS ORDERED: Pregabalin 75 MG CAP PO SCH (21:00)
[2017-09-13] MEDS ORDERED: Dextrose 50% Abboject 50 ML SYRINGE IVP PRN (21:12)
[2017-09-13] MEDS ORDERED: Dextrose 5% in Water 1,000 ML IV PRN (21:12)
[2017-09-13] MEDS ORDERED: HumaLOG 300 UNITS/3 ML VIAL SC PRN ×2 (21:12)
[2017-09-13] MEDS: HYDROcodone/Acetaminophen 5/325 mg Tablet PO PRN (23:01)
[2017-09-14 00:04] VITALS: BMI 21.2
[2017-09-14] MEDS: HYDROcodone/Acetaminophen 5/325 mg Tablet PO PRN (04:36)
[2017-09-14 06:37] LABS: #Eosinphils 0.2 thou/uL (0.0-0.7); #Lymphocytes 0.8 thou/uL (1.20-3.40); #Monocytes 0.9 thou/uL (0.11-0.59); #Neutrophils 8.1 thou/uL (1.40-6.50); %Basophils 0.4 % (0.0-1.0); %Eosinophils 1.7 % (0.0-10.0); %Lymphocytes 7.7 % (21.0-51.0); %Monocytes 8.6 % (0.0-10.0); %Neutrophils 81.6 % (42.0-75.0); Hemoglobin 9.3 g/dL (12.0-16.0); Mean Corpuscular HGB CONC 38.6 g/dL (32.0-36.0); Mean Corpuscular Hemoglobin 35.8 pg (27.0-31.0); Mean Corpuscular Volume 92.6 fl (81.0-99.0); Mean Platelet Volume 8.4 fL (7.4-10.4); Platelet Count 293 thou/uL (130-400); RBC Distribution Width 22.3 % (11.5-14.5); White Blood Cell (WBC) Count 9.9 thou/uL (4.8-10.8)
[2017-09-14 06:38] LABS: Anion Gap 13 mmol/L (10-20); BUN (Urea Nitrogen) 17 mg/dL (9.8-20.1); Calc. Creatinine Clearance 41 mL/min (70-130); Calcium 8.4 mg/dL (7.8-10.44); Carbon Dioxide 22 mmol/L (23-31); Chloride 107 mmol/L (98-107); Estimated GFR-MDRD 46; Glucose 103 mg/dL (80-115); Potassium 4.7 mmol/L (3.5-5.1); Sodium 137 mmol/L (136-145)
--- NOTE | 2017-09-14 07:15 | DIS ---
HOSPITAL COURSE: The patient underwent excision of a right lower extremity wound and loose closure t o protect a vein graft from desiccating. She had some oozing in the day stay area and it was felt be st to watch her in the hospital overnight, which we and she had no further bleeding. She just had se deya drainage. She is insistent on going home today and driving her home car. I have gone over woun d care instructions with daily shower, soap and water on the wound and then dressing twice a day, dry dressing to the wound. She is not likely to follow these directions as it has been very difficult t o get her to take care of the wound prior to this. Additionally, she is not interested in staying in the hospital to have it cared for and so at this time we will try outpatient care again. She was go ing to Wound Care; however, this was only resulting in daily visits to the various emergency rooms in town. No new medications will be prescribed and is very unclear as to which medicine she is actuall y taking based on the list that she brings to the hospital which has multiple duplicates. Follow up will be in our office.
[2017-09-14 08:10] VITALS: BP 115/53
[2017-09-14 08:13] VITALS: TEMP 99.3
[2017-09-14] MEDS ORDERED: Aspirin 81 mg Enteric Coated Tablet PO SCH (09:00)
--- NOTE | 2017-09-15 13:59 | OP ---
DATE OF PROCEDURE: 09/13/2017 SURGEON: Dr. Kingsley Alcaraz PREOPERATIVE DIAGNOSIS: Right lower extremity wound dehiscence. PROCEDURE: Excision of necrotic tissue and closure of the wound. PROCEDURE: After prepping and draping the right medial thigh wound, the area was copiously irrigated with at least 1 liter of saline. Necrotic skin edges were debrided and Vicryl suture was used to ap proximate the deep portion of the wound over a saphenous vein graft. Following this, the skin was lo osely reapproximated with interrupted nylon sutures. The wound was then dressed and the patient tole rated the procedure.
== END 2017-09-14 09:46 | disposition home or self-care (01) | DRG 264 ==
LOC: SDC 12:13 → SURG A 19:46
PROVIDERS: ADMIT Thoracic Surgery (Cardiothoracic Vascular Surgery); ATTEND Thoracic Surgery (Cardiothoracic Vascular Surgery)
PROC: 0JBL0ZZ Excision of Right Upper Leg Subcutaneous Tissue and Fascia, Open Approach (ICD-10-PCS; principal; 2017-09-13)
DX: I70.261 Atherosclerosis of native arteries of extremities with gangrene, right leg (principal); E10.9 Type 1 diabetes mellitus without complications; I70.235 Atherosclerosis of native arteries of right leg with ulceration of other part of foot; E78.2 Mixed hyperlipidemia; Z96.641 Presence of right artificial hip joint; Z98.84 Bariatric surgery status; Z88.0 Allergy status to penicillin; Z96.612 Presence of left artificial shoulder joint; Z91.040 Latex allergy status; Z82.49 Family history of ischemic heart disease and other diseases of the circulatory system; Z82.3 Family history of stroke
CPT/HCPCS: 36415; 36416; 80048; 85025; J1885; J2001; J2405; J2704; J3010

== ENCOUNTER 2017-10-24 13:30 | Inpatient (IN) | payer MEDICARE, MEDICAID ==
[2017-10-26] MEDS ORDERED: Heparin 10,000 UNITS/1 ML VIAL 30,000 UNITS in Sodium Chloride 0.9% 1,000 ML FS SCH (08:30)
[2017-10-26] MEDS ORDERED: Hydrocortisone Sod Succ/PF 100 mg/2 ml Vial ONE (08:54)
[2017-10-26] MEDS ORDERED: Midazolam HCl 2 mg/2 ml Vial ONE (09:23)
[2017-10-26] MEDS ORDERED: Norepinephrine 8 MG/0.9% NS 0 ML ONE (09:38)
[2017-10-26] MEDS ORDERED: Phenylephrine 10 MG/NS 250 ML 0 ML ONE (09:38)
[2017-10-26] MEDS ORDERED: Fentanyl 100 MCG/2 ML VIAL ONE ×4 (09:38→14:46)
[2017-10-26] MEDS ORDERED: Albumin 5% 0 ML ONE (09:39)
[2017-10-26] MEDS ORDERED: Protamine Sulfate 50 MG/5 ML VIAL ONE ×2 (09:45→15:02)
[2017-10-26] MEDS ORDERED: Nitroglycerin 50 MG/250 ML BOT 250 ML ONE (10:58)
[2017-10-26] MEDS ORDERED: Insulin Regular 300 UNITS/3 ML VIAL ONE (11:01)
[2017-10-26] MEDS ORDERED: Ketamine 50 MG/ML VIAL ONE (12:07)
[2017-10-26] MEDS ORDERED: Promethazine HCl 25 MG/ML VIAL IM PRN ×2 (12:38→14:50)
[2017-10-26] MEDS ORDERED: Ondansetron HCl/PF 4 MG/2 ML Vial IVP PRN ×2 (12:38→14:50)
[2017-10-26] MEDS ORDERED: HYDROmorphone 2 MG/ML VIAL SLOW IVP PRN (12:38)
[2017-10-26] MEDS ORDERED: Promethazine HCl 25 MG/ML VIAL SLOW IVP PRN (12:38)
--- NOTE | 2017-10-26 14:12 | OP ---
PREOPERATIVE DIAGNOSIS: Rest pain, left foot. PROCEDURE: Aorto right external iliac, left common femoral artery bypass using a 14 x 7 mm Hemashiel d graft. SURGEON: Kingsley Alcaraz M.D. ASSISTANTS: Dr. De Leon and Dr. Ely. PROCEDURE IN DETAIL: After adequate anesthesia had been obtained, incision was made in the left groi n and common femoral artery exposed as well as the origin of the SFA and profunda. Midline abdominal incision was made. Abdomen was entered with no adhesions noted. Bowel was rotated to the right. T he cecum was noted to be unattached in the right lower quadrant. After exposing the retroperitoneum, tunnels were created to the distal most right external iliac artery and then a tunnel into the left groin. After heparinization, an adequate ACT level, the aorta was divided proximally oversewn distal ly with a double layer 4-0 Prolene suture in an end-to-end anastomosis proximally performed with a 4- 0 Prolene suture. Following this, the graft was tunneled posteriorly to the right external iliac art ananya where an end-to-side anastomosis was performed. The bulk of the external iliac artery was heavil y calcified, but was soft right at the inguinal ligament and one of the circumflex femoral branches w as identified. Following completion of this was appropriate flushing and buddhist of flow of the other limb, which had been passed through the left groin tunnel, it was then anastomosed in an end-to -side fashion to the common femoral artery. Following buddhist of flow here, Protamine was given to partially reverse the heparin, reperitonealization was carried out in the abdomen and the bowel wa s returned over the cecum in the right lower quadrant. Fascia was then closed with a double layer of PDS suture. Following completion of this, skin was closed and then the groin incision was closed in layers. The patient is to be taken to the recovery room in guarded condition.
[2017-10-26] MEDS ORDERED: DOPamine 400 MG/D5W 250 ML 250 ML IVPB PRN (14:50)
[2017-10-26] MEDS ORDERED: Acetaminophen 325 MG TAB PO PRN (14:50)
[2017-10-26] MEDS ORDERED: HYDROcodone/Acetaminophen 5/325 mg Tablet PO PRN (14:50)
[2017-10-26] MEDS ORDERED: Heparin 10,000 UNITS/ 10 ML VIAL ONE (15:02)
[2017-10-26] MEDS ORDERED: Lidocaine 1% PF 5 ML VIAL ONE (15:02)
[2017-10-26] MEDS ORDERED: Glycopyrrolate 0.2 MG/ML 5 ML SYRINGE ONE (15:02)
[2017-10-26] MEDS ORDERED: Nitroglycerin 50 MG/250 ML BOT ONE (15:02)
[2017-10-26] MEDS ORDERED: ePHEDrine/0.9% NaCl/PF SYRINGE 50 mg/10 ml ONE (15:02)
[2017-10-26] MEDS ORDERED: Labetalol 100 MG/20 ML MDV ONE (15:02)
[2017-10-26] MEDS ORDERED: Propofol 200 MG/20 ML VIAL ONE (15:02)
[2017-10-26] MEDS ORDERED: Morphine 5 MG/ML SYRINGE SLOW IVP PRN (15:15)
[2017-10-26] MEDS ORDERED: Morphine 2 MG/ML SYRINGE ONE (16:49)
[2017-10-26] MEDS ORDERED: MORPHINE 10 MG/ML SYRINGE ONE (17:34)
[2017-10-26] MEDS: Sodium Chloride 0.45% 1,000 ML IV SCH ×2 (18:51→22:08)
[2017-10-26] MEDS: Fentanyl 100 MCG/2 ML VIAL SLOW IVP PRN (18:59)
[2017-10-26] MEDS: Clindamycin/D5W 900 MG in Premix Bag 1 BAG IVPB SCH ×2 (19:02→22:07)
[2017-10-26] MEDS: niCARdipine HCl 25 MG in Sodium Chloride 0.9% 250 ML 240 ML IVPB PRN (20:14)
--- NOTE | 2017-10-26 20:16 | RAD ---
PORTABLE CHEST: 10/26/17 HISTORY: Post central line placement. Heart size is enlarged. Pulmonary vessels are mildly engorged. A right subclavian line is present. Ca theter tip overlies the superior vena cava. No signs of pneumothorax. IMPRESSION: 1. Right subclavian line with catheter tip overlying the superior vena cava. No signs of pneumot horax. 2. Cardiomegaly with mild central vascular prominence but no overt edema. POS: [facility]
[2017-10-26] MEDS: Vancomycin HCl 1 GM in Premix Bag 1 BAG IVPB SCH (20:51)
[2017-10-26] MEDS: busPIRone HCl 10 MG TAB PO SCH (20:52)
[2017-10-26] MEDS: Morphine 4 MG/ML Carpuject SLOW IVP PRN (21:08)
[2017-10-26] MEDS: HYDROcodone/Acetaminophen 5/325 mg Tablet PO PRN (22:07)
[2017-10-27] MEDS: niCARdipine HCl 25 MG in Sodium Chloride 0.9% 250 ML 240 ML IVPB PRN ×3 (00:04→17:40)
[2017-10-27] MEDS: Morphine 4 MG/ML Carpuject SLOW IVP PRN ×5 (03:16→20:45)
[2017-10-27] MEDS: Clindamycin/D5W 900 MG in Premix Bag 1 BAG IVPB SCH ×2 (03:21→09:27)
[2017-10-27 04:43] LABS: #Eosinphils 0.1 thou/uL (0.0-0.7); #Lymphocytes 1.3 thou/uL (1.20-3.40); #Monocytes 0.9 thou/uL (0.11-0.59); #Neutrophils 7.2 thou/uL (1.40-6.50); %Basophils 0.4 % (0.0-1.0); %Eosinophils 1.5 % (0.0-10.0); %Lymphocytes 13.2 % (21.0-51.0); %Monocytes 9.5 % (0.0-10.0); %Neutrophils 75.4 % (42.0-75.0); Hemoglobin 10.9 g/dL (12.0-16.0); Mean Corpuscular HGB CONC 32.4 g/dL (32.0-36.0); Mean Corpuscular Hemoglobin 29.1 pg (27.0-31.0); Mean Corpuscular Volume 89.7 fl (81.0-99.0); Mean Platelet Volume 8.1 fL (7.4-10.4); Platelet Count 315 thou/uL (130-400); RBC Distribution Width 18.9 % (11.5-14.5); Red Blood Cell (RBC) Count 3.75 mill/uL (4.20-5.40); White Blood Cell (WBC) Count 9.5 thou/uL (4.8-10.8)
[2017-10-27 05:07] LABS: Anion Gap 10 mmol/L (10-20); BUN (Urea Nitrogen) 13 mg/dL (9.8-20.1); Calc. Creatinine Clearance 67 mL/min (70-130); Calcium 7.6 mg/dL (7.8-10.44); Carbon Dioxide 24 mmol/L (23-31); Chloride 109 mmol/L (98-107); Estimated GFR-MDRD 73; Glucose 118 mg/dL (80-115); Potassium 4.9 mmol/L (3.5-5.1); Sodium 138 mmol/L (136-145)
[2017-10-27] MEDS: Sodium Chloride 0.45% 1,000 ML IV SCH ×3 (05:46→17:42)
[2017-10-27] MEDS: Levothyroxine Sodium 25 MCG TAB PO SCH (05:47)
[2017-10-27] MEDS: HYDROcodone/Acetaminophen 5/325 mg Tablet PO PRN ×2 (05:47→19:42)
[2017-10-27] MEDS: busPIRone HCl 10 MG TAB PO SCH ×2 (07:54→19:41)
[2017-10-27] MEDS: Vancomycin HCl 1 GM in Premix Bag 1 BAG IVPB SCH (07:55)
[2017-10-27] MEDS ORDERED: cloNIDine 0.1mg/24 Hour PATCH TD SCH (09:00)
[2017-10-27 11:37] VITALS: BMI 22.4
[2017-10-27] MEDS: Nicotine 7 MG PATCH TD SCH (12:18)
[2017-10-28] MEDS: Morphine 4 MG/ML Carpuject SLOW IVP PRN ×4 (00:59→15:43)
[2017-10-28] MEDS: Fentanyl 100 MCG/2 ML VIAL SLOW IVP PRN ×2 (03:50→20:33)
[2017-10-28] MEDS: niCARdipine HCl 25 MG in Sodium Chloride 0.9% 250 ML 240 ML IVPB PRN ×2 (03:51→06:32)
[2017-10-28 04:43] LABS: Anion Gap 11 mmol/L (10-20); BUN (Urea Nitrogen) 10 mg/dL (9.8-20.1); Calc. Creatinine Clearance 68 mL/min (70-130); Calcium 8.1 mg/dL (7.8-10.44); Carbon Dioxide 24 mmol/L (23-31); Chloride 107 mmol/L (98-107); Estimated GFR-MDRD 74; Glucose 74 mg/dL (80-115); Potassium 4.8 mmol/L (3.5-5.1); Sodium 137 mmol/L (136-145)
[2017-10-28 05:47] LABS: #Eosinphils 0.3 thou/uL (0.0-0.7); #Lymphocytes 0.5 thou/uL (1.20-3.40); #Monocytes 0.7 thou/uL (0.11-0.59); #Neutrophils 7.6 thou/uL (1.40-6.50); %Basophils 0.4 % (0.0-1.0); %Eosinophils 3.4 % (0.0-10.0); %Lymphocytes 5.9 % (21.0-51.0); %Monocytes 7.7 % (0.0-10.0); %Neutrophils 82.7 % (42.0-75.0); Anisocytosis MODERATE=16-30 cells (100X) (0-5/hpf); Hemoglobin 11.3 g/dL (12.0-16.0); MDiff Complete? YES; Mean Corpuscular HGB CONC 39.5 g/dL (32.0-36.0); Mean Corpuscular Hemoglobin 37.6 pg (27.0-31.0); Mean Corpuscular Volume 95.1 fl (81.0-99.0); Mean Platelet Volume 8.5 fL (7.4-10.4); PLT Morphology Comment Appears Adequate; Platelet Count 313 thou/uL (130-400); Polychromasia SLIGHT = 2-3 cells (100X) (0-2/hpf); RBC Distribution Width 27.9 % (11.5-14.5); Red Blood Cell (RBC) Count 3.02 mill/uL (4.20-5.40); White Blood Cell (WBC) Count 9.1 thou/uL (4.8-10.8)
[2017-10-28] MEDS ORDERED: Furosemide 40 MG/4 ML VIAL SLOW IVP SCH (06:30)
[2017-10-28] MEDS: Levothyroxine Sodium 25 MCG TAB PO SCH (06:32)
--- NOTE | 2017-10-28 08:19 | CON ---
DATE OF CONSULTATION: 10/28/2017 REASON FOR CONSULTATION: Shortness of breath. HISTORY OF PRESENT ILLNESS: This is a 62-year-old female who underwent a aortobifemoral surgery the day before yesterday. Postop course has been complicated by shortness of breath. She tells me that she has chronic persistent asthma. She is routinely treated by Dr. Garcia next to the [facility]. She takes Advair at home. She says she does not use any albuterol. She is currently short of breath and she is demanding a breathing treatment. PAST MEDICAL HISTORY: 1. Bipolar disorder. 2. Hypertension. 3. Diabetes mellitus. 4. Hyperlipidemia. 5. Peripheral vascular disease. 6. Hypothyroidism. 7. Urinary incontinence. 8. Anemia. PAST SURGICAL HISTORY: Gastric bypass and recent aortofemoral bypass. SOCIAL HISTORY: Quit smoking in 2003. Lives at home alone. ALLERGIES: PENICILLIN and LATEX. FAMILY MEDICAL HISTORY: Noncontributory. MEDICATIONS PRIOR TO ADMISSION: Tizanidine 4 mg t.i.d., sertraline 100 mg daily , nitroglycerin as needed, acetaminophen with codeine as needed, Dexilant 60 mg daily, carbidopa/levodopa 1 tablet t.i.d., Norvasc 10 mg daily, Jardiance 1 tablet daily, Capay 10/325 1-2 every 6 hours as needed, Toviaz 4 mg daily, levothyroxine 25 mcg daily, Glargine insulin 20 units daily, Latuda 1 tablet daily, Namenda 10 mg b.i.d., Singulair 10 mg daily, rivastigmine 6 mg b.i.d., Crestor 5 mg daily, Trintellix 1 tablet daily, bupropion 1 b.i.d., buspirone 45 mg b.i.d., valacyclovir 500 mg daily. REVIEW OF SYSTEMS: Twelve point review of systems otherwise negative. PHYSICAL EXAMINATION: VITAL SIGNS: O2 sat 92% on 5 liters. Temperature 98.4, pulse 71, blood pressure 127/63. Total intake for the last 24 hours 2816, output 2583. GENERAL: She is in no acute distress. HEENT: Unremarkable. NECK: Without adenopathy or JVD. LUNGS: She has diffuse wheezing bilaterally. CARDIOVASCULAR: S1, S2 regular. ABDOMEN: The abdomen is sore around the incisional site. EXTREMITIES: No clubbing, cyanosis, or edema. NEUROLOGIC: Moves all 4 extremities. PSYCHIATRIC: Alert and oriented. SKIN: No obvious lesions. LABORATORY DATA: White blood cell count 9.1, hematocrit 28.7, platelet count 313. Sodium 137, potassium 4.8, chloride 107, CO2 24, BUN 10, creatinine 0.7, glucose 74. Chest x-ray shows cephalization of flow, clear diaphragms. ASSESSMENT: 1. Chronic persistent asthma/chronic obstructive pulmonary disease. 2. Postop from aortofemoral bypass. 3. Other medical problems as listed above. PLAN: I will start her on nebulization therapy with EzPAP, will withhold steroids at this time. I will also start Dulera since Advair is not available in formulary. At some point she needs to start getting up and increasing activity. Thank you for the referral. We will follow. 70 min spent on patient at the bedside and/or on the patient's floor. ROYAL
[2017-10-28] MEDS: HYDROcodone/Acetaminophen 5/325 mg Tablet PO PRN ×4 (08:33→22:13)
[2017-10-28] MEDS: Amlodipine 5 MG TAB PO SCH (08:34)
[2017-10-28] MEDS: busPIRone HCl 10 MG TAB PO SCH ×2 (08:37→20:34)
[2017-10-28] MEDS: Nicotine 7 MG PATCH TD SCH (11:32)
[2017-10-28] MEDS: Insulin Regular 300 UNITS/3 ML VIAL SC PRN ×2 (16:29→22:12)
[2017-10-28] MEDS: hydrALAZINE 20 MG/ML VIAL SLOW IVP PRN (16:33)
[2017-10-28] MEDS: Mometasone/Formoterol 120 PUFF INHALER INH SCH (20:02)
[2017-10-29] MEDS: Fentanyl 100 MCG/2 ML VIAL SLOW IVP PRN (00:45)
[2017-10-29] MEDS: HYDROcodone/Acetaminophen 5/325 mg Tablet PO PRN ×3 (05:14→18:14)
[2017-10-29] MEDS: hydrALAZINE 20 MG/ML VIAL SLOW IVP PRN ×2 (05:15→16:58)
[2017-10-29] MEDS: Levothyroxine Sodium 25 MCG TAB PO SCH (05:16)
[2017-10-29] MEDS: Mometasone/Formoterol 120 PUFF INHALER INH SCH ×2 (07:52→19:44)
[2017-10-29] MEDS: Amlodipine 5 MG TAB PO SCH (09:04)
[2017-10-29] MEDS: busPIRone HCl 10 MG TAB PO SCH ×2 (09:05→21:49)
[2017-10-29] MEDS: Milk Of Magnesia 30 ML UDCUP PO PRN (10:21)
[2017-10-29] MEDS: Nicotine 7 MG PATCH TD SCH (12:02)
[2017-10-29] MEDS: Insulin Regular 300 UNITS/3 ML VIAL SC PRN (12:02)
--- NOTE | 2017-10-30 00:38 | PRG ---
DATE OF SERVICE: 10/29/2017 SERVICE: Pulmonary Medicine. INTERVAL HISTORY: The patient is doing really well from a respiratory standpoint. She has been out walking on her legs. She has some soreness associated with the procedure, but other than that, does not have any claudication. She has been spitting up copious amounts of sputum. It started taper off , but her breathing is much improved. She denies any current fevers, chills, nausea, vomiting, or ch est discomfort. PHYSICAL EXAMINATION: VITAL SIGNS: Afebrile, pulse 66, blood pressure 154/73, respirations 16, saturation 94% on 2 liters nasal cannula. GENERAL: Patient is awake, alert, in no apparent distress. LUNGS: Decreased air entry with prolonged expiratory phase. Both wheezing and rhonchi are present. No crackles. HEART: Normal rate, regular. ABDOMEN: Soft, nontender, nondistended. Bowel sounds are positive. MUSCULOSKELETAL: No cyanosis or clubbing. No pitting in the bilateral lower extremities. NEUROLOGIC: Grossly nonfocal. ASSESSMENT: 1. Chronic obstructive pulmonary disease/asthma with chronic bronchitis. 2. Status post aortofemoral bypass surgery for severe peripheral vascular disease. PLAN: We will continue supportive care including nebulized medications and inhalers. Pulmonary Crit ical Care will continue to follow while the patient remains in this location. At this point, she has no pure respiratory issue preventing disposition.
[2017-10-30] MEDS: HYDROcodone/Acetaminophen 5/325 mg Tablet PO PRN ×3 (06:17→21:17)
[2017-10-30] MEDS: Levothyroxine Sodium 25 MCG TAB PO SCH (06:17)
[2017-10-30] MEDS: Mometasone/Formoterol 120 PUFF INHALER INH SCH ×2 (07:02→19:09)
[2017-10-30] MEDS: Amlodipine 5 MG TAB PO SCH (08:50)
[2017-10-30] MEDS: busPIRone HCl 10 MG TAB PO SCH ×2 (09:40→21:17)
[2017-10-30] MEDS: Fentanyl 100 MCG/2 ML VIAL SLOW IVP PRN ×2 (10:22→16:30)
[2017-10-30] MEDS: Nicotine 7 MG PATCH TD SCH (12:14)
[2017-10-30] MEDS: Milk Of Magnesia 30 ML UDCUP PO PRN (12:14)
[2017-10-30] MEDS: hydrALAZINE 20 MG/ML VIAL SLOW IVP PRN (12:34)
[2017-10-30] MEDS: Insulin Regular 300 UNITS/3 ML VIAL SC PRN (16:17)
[2017-10-30] MEDS ORDERED: Senokot S 8.6-50 MG TAB PO SCH (20:00)
[2017-10-30] MEDS ORDERED: Mineral Oil PER 1 ML PO SCH (20:00)
--- NOTE | 2017-10-30 21:26 | PRG ---
DATE OF SERVICE: 12/26/2017 SERVICE: Pulmonary Medicine. INTERVAL HISTORY: The patient is doing great from a respiratory standpoint. She currently denies an y shortness of breath or chest pain. She has no nausea or vomiting. There was no diarrhea. If anyt mary she is still constipated. She notes arthralgias and myalgia basically from head to toe as well as headache. After this, she self-medicates with pot at home. She indicates using a joint on a floyd y basis. She does not currently have any with her, otherwise she would use some, she tells me. That being said, because she does not have any, she is requesting "pot pill." Otherwise, there has been no interval change to her condition. PHYSICAL EXAMINATION: VITAL SIGNS: Afebrile, pulse 76, blood pressure 168/85, respirations 18, saturation 99% on 2 liters nasal cannula. GENERAL: The patient is awake, alert, in no apparent distress. LUNGS: Excellent air entry with no prolonged expiratory phase or wheezing. HEART: Normal rate, regular. ABDOMEN: Soft, nontender, nondistended. Bowel sounds are positive. MUSCULOSKELETAL: No cyanosis or clubbing. There is no pitting in the bilateral lower extremities. NEUROLOGIC: Grossly nonfocal. ASSESSMENT: 1. Chronic obstructive pulmonary disease/asthma with chronic bronchitis. 2. Status post aortofemoral bypass surgery for severe peripheral vascular disease. 3. Cannabinoid abuse. DISCUSSION AND PLAN: There is nothing standing in the way of her discharge from a purely respiratory perspective. Pulmonary will continue to follow while she remains in this location. There is nothin g standing from a lung standpoint, there is nothing standing in the way of her disposition. I will p rovide her with a couple doses of medication to see if we can help with some of that constipation. I was not willing to acquiesce with her "pot pill" request.
[2017-10-31] MEDS: HYDROcodone/Acetaminophen 5/325 mg Tablet PO PRN (02:22)
[2017-10-31] MEDS ORDERED: Phenazopyridine HCl 97.5 MG TABLET ONE (05:27)
[2017-10-31] MEDS: Levothyroxine Sodium 25 MCG TAB PO SCH (06:10)
--- NOTE | 2017-10-31 07:26 | DIS ---
HOSPITAL COURSE: The patient was admitted on 10/26/2017 where she underwent an aorta right external iliac and left common femoral artery bypass for rest pain in her left foot. Her postoperative course was smooth with no significant problems. She was able to ambulate without difficulty, had minimal p ain, good bowel movement and her incisions were all healing nicely. She will be discharged home on h er admitting medicines, although admittedly it has been very difficult for me to figure out what she actually takes at home. Pressures have been well controlled in the hospital. She has been given ins tructions with particular attention paid to keeping her left groin incision clean and dry after showe ring. Discharge and follow up instructions were given. No prescriptions have been written and I hav e asked her to please take an aspirin every day.
[2017-10-31] MEDS: Mometasone/Formoterol 120 PUFF INHALER INH SCH (08:04)
[2017-10-31] MEDS: busPIRone HCl 10 MG TAB PO SCH (10:33)
[2017-10-31] MEDS: Amlodipine 5 MG TAB PO SCH (10:34)
[2017-10-31 12:13] VITALS: BP 180/86; TEMP 98.5
[2017-10-31] MEDS: Nicotine 7 MG PATCH TD SCH (13:56)
== END 2017-10-31 13:45 | disposition home or self-care (01) | DRG 272 ==
LOC: SURG A 10-26 07:36 → CCU 10-26 17:25 → SURG B 10-28 16:23
PROVIDERS: ADMIT Thoracic Surgery (Cardiothoracic Vascular Surgery); ATTEND Thoracic Surgery (Cardiothoracic Vascular Surgery)
PROC: 041 Lower Arteries, Bypass (ICD-10-PCS; principal; 2017-10-26)
DX: I70.222 Atherosclerosis of native arteries of extremities with rest pain, left leg (principal); J44.9 Chronic obstructive pulmonary disease, unspecified; E03.9 Hypothyroidism, unspecified; E11.9 Type 2 diabetes mellitus without complications; I10 Essential (primary) hypertension; Z79.4 Long term (current) use of insulin; Z98.84 Bariatric surgery status; F31.9 Bipolar disorder, unspecified; Z87.891 Personal history of nicotine dependence; E78.2 Mixed hyperlipidemia; K21.9 Gastro-esophageal reflux disease without esophagitis; Z86.73 Personal history of transient ischemic attack (TIA), and cerebral infarction without residual deficits; F12.10 Cannabis abuse, uncomplicated
CPT/HCPCS: 36416; 36430; 71045; 80048; 85025; 85027; 86850; 86900; 86901; 93005; 93010; 93306; 94640; 94664; A4216; C1769; G8978-GP-CL; G8979-GP-CI; G8979-GP-CL; G8980-GP-CL; J0360; J1644; J1720; J1815; J1940; J2001; J2250; J2270; J2704; J2720; J3010; J3370; J3490; J7050; J7620; P9016; P9045

== ENCOUNTER 2017-12-06 13:21 | Outpatient (CLI) | payer MEDICARE, MEDICAID ==
--- NOTE | 2017-12-12 09:23 | MMO ---
BILATERAL SCREENING MAMMOGRAM: Date: 12/06/17 HISTORY: 62-year-old female. Routine screening mammography. COMPARISON: 11/19/16, 02/14/14, and 03/27/15. TECHNIQUE: CC and MLO views of both breasts are submitted for interpretation. This patient's mammogram was reviewed with the assistance of computer-aided detection. FINDINGS: The breasts are composed of scattered fibroglandular tissue. Bilaterally, no suspicious dominant mass , architectural distortion, or suspicious calcifications. IMPRESSION: BIRADS 1: Negative RECOMMENDATION: Annual mammogram. POS: [facility]
== END 2017-12-06 13:22 | disposition home or self-care (01) ==
LOC: SCSMAMMO 13:21
PROVIDERS: ATTEND Family Medicine
DX: Z12.31 Encounter for screening mammogram for malignant neoplasm of breast (principal)
CPT/HCPCS: 77067

== ENCOUNTER 2018-02-06 14:42 | Outpatient (CLI) | payer MEDICARE, MEDICAID ==
--- NOTE | 2018-02-06 16:20 | ULT ---
BILATERAL LOWER EXTREMITY VENOUS DUPLEX EXAM: INDICATIONS: Bilateral lower extremity edema. Right hip fracture. Injury to left knee and femur. The left popli teal vein was unable to be evaluated due to the patient's pain and fractured left knee. TECHNIQUE: The deep veins of both lower extremities are evaluated by ultrasound, color Doppler with spectral jamey lysis, and compression. FINDINGS: The right common femoral vein, greater saphenous vein, femoral vein, popliteal vein, and posterior ti bial vein are evaluated and appear unremarkable, with no evidence of thrombus. The left common femoral vein, saphenous vein, femoral vein, and posterior tibial vein show normal jono w and compression. IMPRESSION: No evidence of lower extremity deep venous thrombosis identified. The left popliteal vein was not ev aluated. POS: [facility]
== END 2018-02-06 14:43 | disposition home or self-care (01) ==
LOC: ULT 14:42
PROVIDERS: ATTEND Physical Medicine & Rehabilitation
DX: E03.9 Hypothyroidism, unspecified (principal); R00.1 Bradycardia, unspecified; E83.51 Hypocalcemia; I10 Essential (primary) hypertension; D64.9 Anemia, unspecified
CPT/HCPCS: 93970

== ENCOUNTER 2018-03-18 12:55 | Emergency (ER) | payer MEDICARE, MEDICAID ==
--- NOTE | 2018-03-18 14:44 | CT ---
CT OF THE BRAIN WITHOUT CONTRAST: COMPARISON: 01/15/11. HISTORY: Trauma after 2 falls. Headache and facial pain. TECHNIQUE: Multiple contiguous axial images were obtained in a CT of the brain without contrast. FINDINGS: There are scattered hypodensities in the subcortical and periventricular white matter, likely seconda ry to small-vessel ischemic disease. Encephalomalacia is seen in the left frontal lobe. There is no evidence of hydrocephalus, intracranial hemorrhage, or extraaxial fluid collection. There also appe ars to be a remote infarction in the right cerebellum. Soft tissue swelling is seen in the right frontal scalp. The underlying calvarium is unremarkable. The visualized paranasal sinuses and mastoid air cells are well aerated. IMPRESSION: No evidence of acute intracranial abnormality. POS: [facility]
--- NOTE | 2018-03-18 14:49 | CT ---
CT OF THE CERVICAL SPINE WITHOUT CONTRAST: COMPARISON: 02/02/13. HISTORY: Fall x 2 with head trauma and neck pain. TECHNIQUE: Multiple contiguous axial images were obtained in a CT of the cervical spine without contrast. Sagit carlos eduardo and coronal reformats were performed. FINDINGS: There are moderate degenerative changes of the cervical spine. Radiopaque material is seen within th e C3 vertebral body and just anterior to the C2-3 intervertebral disk. The patient is status post an terior fusion of C5 through C7 with a plate and screws. The disk spaces are in good position within the disk space. There are 3 linear lucencies extending through the ring of C1. One is along the right anterior aspec t. The second is along the right posterior aspect and the third is along the left posterior aspect. These are minimally displaced. There is the possibility of developing callus adjacent to the right posterior lucency and these fractures may not be acute and may be chronic. However, these are not se en on the prior CT from 2012. No other fractures are identified. The vertebral bodies demonstrate normal alignment without subluxa tion. No prevertebral soft tissue swelling is seen. The posterior facets are well aligned. Normal alignment of the skull with the cervical spine is seen . IMPRESSION: There are 3 fractures of the ring of C1 which are nondisplaced. These have occurred in the interim s maria elena the exam in 2012. However, there is a suggestion of developing callus adjacent to one of the fr actures suggesting that these are remote rather than acute. Correlate with history. POS: [facility]
--- NOTE | 2018-03-18 14:55 | RAD ---
FOUR VIEWS LEFT KNEE: COMPARISON: 02/04/18. HISTORY: Fall with left knee pain. FINDINGS: Four views left knee show no evidence of acute fracture or dislocation. No knee effusion is seen. M ild osteophytes are seen in the patellofemoral compartment suggestive of osteoarthritis. IMPRESSION: Mild left knee osteoarthritis without acute osseous abnormality. POS: [facility]
--- NOTE | 2018-03-18 14:56 | RAD ---
THREE IVEWS OF THE RIGHT HAND: COMPARISON: None. HISTORY: Fall with right hand pain. FINDINGS: Three views of the right hand show a fracture of the 5th metacarpal neck. No other fractures are see n. There is mild degenerative change in the DIP joint of the middle finger. IMPRESSION: Fifth metacarpal neck fracture. POS: [facility]
--- NOTE | 2018-03-18 14:58 | RAD ---
SINGLE VIEW OF THE PELVIS: HISTORY: Two falls today with pelvic pain. FINDINGS: A single view of the pelvis show no evidence of acute fracture or dislocation. The patient is status post left hip arthroplasty. There are small ossific fragments adjacent to the right hip which could represent avulsion fracture fragments from the greater trochanter on the right. These appear cortic ated and remote. Vascular calcifications are seen. Degenerative changes are seen in the lumbar spine. IMPRESSION: No evidence of acute osseous abnormality. POS: [facility]
== END 2018-03-18 15:36 | disposition home or self-care (01) ==
LOC: SCSER 12:55
DX: S09.90XA Unspecified injury of head, initial encounter (principal); S62.336A Displaced fracture of neck of fifth metacarpal bone, right hand, initial encounter for closed fracture; S01.01XA Laceration without foreign body of scalp, initial encounter; D50.9 Iron deficiency anemia, unspecified; E11.9 Type 2 diabetes mellitus without complications; E78.00 Pure hypercholesterolemia, unspecified; E78.5 Hyperlipidemia, unspecified; F41.9 Anxiety disorder, unspecified; F32.9 Major depressive disorder, single episode, unspecified; W19.XXXA Unspecified fall, initial encounter
CPT/HCPCS: 12013; 29125; 70450; 72125; 72170

== ENCOUNTER 2018-03-30 10:28 | Emergency (ER) | payer MEDICARE, MEDICAID ==
--- NOTE | 2018-03-30 11:46 | RAD ---
4 VIEW SKULL: Date: 03/30/18 INDICATION: Evaluation of foreign body. Staple removal of soft tissues, scalp wound. FINDINGS: There are two metallic rosalva seen at the right anterior parietal scalp region, superiorly. No acute osseous abnormalities are visualized. There are a few scattered nonspecific osseous lucencie s. IMPRESSION: Two metallic rosalva are seen at the superior, anterior right parietal scalp region. Correlate clinic ally. POS: [facility]
== END 2018-03-30 11:39 | disposition home or self-care (01) ==
LOC: SCSER 10:28
DX: S01.01XD Laceration without foreign body of scalp, subsequent encounter (principal); G20 Parkinson's disease; F02.80 Dementia in other diseases classified elsewhere, unspecified severity, without behavioral disturbance, psychotic disturbance, mood disturbance, and anxiety; D50.9 Iron deficiency anemia, unspecified; E78.5 Hyperlipidemia, unspecified; E11.9 Type 2 diabetes mellitus without complications; I10 Essential (primary) hypertension; Z86.73 Personal history of transient ischemic attack (TIA), and cerebral infarction without residual deficits; F41.9 Anxiety disorder, unspecified; F32.9 Major depressive disorder, single episode, unspecified; F90.9 Attention-deficit hyperactivity disorder, unspecified type; W19.XXXD Unspecified fall, subsequent encounter
CPT/HCPCS: 70260

== ENCOUNTER 2018-07-06 12:40 | Outpatient (CLI) | payer MEDICARE, MEDICAID ==
--- NOTE | 2018-07-06 17:33 | MRI ---
MRI OF BRAIN WITHOUT CONTRAST: 07/06/18 Multiplanar and multisequential imaging of brain obtained. INDICATIONS: Ataxia. COMPARISON: Comparison made to CT head 03/18/18. There is encephalomalacia and gliosis involving the left frontal lobe and portions of the anterior pa rietal lobe. This was present on the prior CT. There is no evidence of restricted diffusion. No evide nce of mass or edema. The intracranial internal carotid arteries and proximal cerebral arteries show flow voids. Basilar ar esa is small. Dural venous sinuses are patent. The paranasal sinuses and mastoids are clear. IMPRESSION: Volume loss and gliosis in the left cerebral hemisphere most consistent with an old left MCA infarct. No acute finding. POS: [facility]
== END 2018-07-06 12:41 | disposition home or self-care (01) ==
LOC: SCSMRI 12:40
PROVIDERS: ATTEND Psychiatry & Neurology Neurology
DX: R27.0 Ataxia, unspecified (principal); G93.89 Other specified disorders of brain; Z86.73 Personal history of transient ischemic attack (TIA), and cerebral infarction without residual deficits
CPT/HCPCS: 70551

== ENCOUNTER 2018-08-22 13:22 | Inpatient (IN) | payer MEDICARE, MEDICAID ==
[2018-08-22 14:59] LABS: Bilirubin Negative (Negative); Blood, Urine Negative (Negative); Clarity Clear (Clear); Glucose, Urine (Dipstick) 250 mg/dL (Negative); Leukocyte Negative (Negative); Nitrite Negative (Negative); Protein, Urine (Dipstick) Negative (Neg-Trace); Urobilinogen 0.2 mg/dL (0.2-1.0); pH, Urine 5.5 (5.0-9.0)
[2018-08-22 15:06] LABS: Amphetamine Not Detected (NotDetected); Barbiturates Screen Not Detected (NotDetected); Benzodiazepine Screen Not Detected (NotDetected); Cocaine Metabolite Screen Not Detected (NotDetected); Medtox Control Line Valid? VALID (VALID); Methadone Not Detected (NotDetected); Methamphetamine Not Detected (NotDetected); Opiate Screen Detected (NotDetected); Oxycodone Screen Not Detected (NotDetected); Phencyclidine (PCP) Not Detected (NotDetected); THC/Cannabinoid Screen Detected (NotDetected); Tricyclic Screen Not Detected (NotDetected)
[2018-08-22 15:12] LABS: #Basophils 0.1 thou/uL (0.0-0.2); #Eosinphils 0.2 thou/uL (0.0-0.7); #Lymphocytes 1.5 thou/uL (1.20-3.40); #Monocytes 0.5 thou/uL (0.11-0.59); #Neutrophils 6.3 thou/uL (1.40-6.50); %Basophils 1.2 % (0.0-1.0); %Eosinophils 2.7 % (0.0-10.0); %Lymphocytes 17.6 % (21.0-51.0); %Monocytes 5.6 % (0.0-10.0); %Neutrophils 72.9 % (42.0-75.0); Anisocytosis MODERATE=16-30 cells (100X) (0-5/hpf); Elliptocytes SLIGHT = 2-5 cells (100X) (0-1/hpf); Hemoglobin 9.8 g/dL (12.0-16.0); Hypochromia SLIGHT = 6-15 cells (100X) (0-5/hpf); MDiff Complete? YES; Mean Corpuscular HGB CONC 33.4 g/dL (32.0-36.0); Mean Corpuscular Hemoglobin 27.7 pg (27.0-31.0); Mean Corpuscular Volume 82.9 fL (78.0-98.0); Mean Platelet Volume 7.5 fL (7.4-10.4); PLT Morphology Comment Appears Adequate; Platelet Count 306 thou/uL (130-400); RBC Distribution Width 18.9 % (11.5-14.5); Red Blood Cell (RBC) Count 3.52 mill/uL (4.20-5.40); Rouleaux Formation SLIGHT = 1-5 cells (100X) (None Seen); Target Cells SLIGHT = 2-5 cells (100X) (0-1/hpf); Tear Drops SLIGHT = 2-5 cells (100X) (0-1/hpf); White Blood Cell (WBC) Count 8.7 thou/uL (4.8-10.8)
[2018-08-22 15:17] LABS: ALT (SGPT) Less than 6 U/L (8-55); AST (SGOT) 16 U/L (5-34); Albumin 3.6 g/dL (3.4-4.8); Alkaline Phosphatase 72 U/L (40-150); Anion Gap 16 mmol/L (10-20); BUN (Urea Nitrogen) 63 mg/dL (9.8-20.1); Bilirubin, Total 0.4 mg/dL (0.2-1.2); Calc. Creatinine Clearance 0 mL/min (70-130); Calcium 9.3 mg/dL (7.8-10.44); Carbon Dioxide 29 mmol/L (23-31); Chloride 100 mmol/L (98-107); Estimated GFR-MDRD 23; Glucose 110 mg/dL (80-115); Lipase 102 U/L (8-78); Potassium 4.5 mmol/L (3.5-5.1); Protein, Total 6.6 g/dL (6.0-8.3); Sodium 140 mmol/L (136-145)
[2018-08-22 15:18] LABS: CKMB 1.3 ng/mL (0-6.6); Troponin I 0.014 ng/mL (< 0.028)
--- NOTE | 2018-08-22 18:09 | RAD ---
FRONTAL RADIOGRAPH CHEST: Date: 08-22-18 Comparison: 08-25-16 History: Sepsis evaluation. FINDINGS: Multiple old rib fractures noted on the right. There is post-operative hardware overlying the lower c ervical spine as well as left proximal humerus. Increased linear interstitial density noted with no p neumothorax, lobar consolidation or alveolar edema. IMPRESSION: No focal consolidation or alveolar edema. POS: [facility]
--- NOTE | 2018-08-22 18:50 | MRI ---
MRI OF THE LUMBAR SPINE WITHOUT CONTRAST: 08/22/18 COMPARISON: None. HISTORY: Chronic pain for nine months in the pelvis. TECHNIQUE: Multiplanar and multisequence MR imaging of the lumbar spine obtained without contrast. FINDINGS: Images include the lumbar spine and the sacrum. Evaluation is limited without intravenous contrast me fide given clinical concern for osteomyelitis. Assuming five lumbar type vertebral bodies, conus medullaris terminates in the T12-L1 region. There i s anterolisthesis of L4 on L5 measuring 9 mm. Focal area of abnormal increased STIR signal noted at the S3-4 level involving the sacrum as well as the soft tissues just anterior to and posterior to the S3-4 region. This is evidence of osseous edema , a nonspecific finding. T12-L1: Bilateral facet hypertrophy. Intervertebral disc height and signal intensity within normal li mits with no significant central canal and neural foraminal stenosis. L1-2: Bilateral facet hypertrophy. Mild bilateral neural foraminal stenosis. No significant central c anal stenosis. L2-3: Moderate bilateral facet hypertrophy, left greater than right. Moderate left and mild right pham ral foraminal stenosis. No significant central canal stenosis. L3-4: Bilateral facet hypertrophy, left greater than right. Disc space narrowing and disc desiccation . Mild right and moderate/severe left neural foraminal stenosis. No significant central canal stenosi s. L4-5: Prominent bilateral facet hypertrophy. Severe right neural foraminal stenosis. Mild left neural foraminal stenosis. Mild central canal stenosis with moderate right lateral recess stenosis. L5-S1: Bilateral facet hypertrophy with mild bilateral neural foraminal stenosis, right greater than left. No significant central canal stenosis. The axial imaging is significantly limited secondary to motion, especially through the sacrum and the lower lumbar spine. Incompletely imaged T2 hyperintense lesion of left kidney measures 3.3 cm, likel y on the basis of an incompletely imaged cyst. IMPRESSION: 1. Abnormal increased T2 signal on the basis of edema within the sacrum at the S3-4 level with s mall volume fluid signal intensity posterior and anterior to this within the soft tissues. This could be related to infection and/or fracture. Clinical correlation is essential. A followup CT examinatio n is advised to evaluate for fracture as clinically warranted. 2. Multilevel degenerative change of the lumbar spine. POS: [facility]
[2018-08-22] MEDS ORDERED: Ondansetron PF 4 MG/2 ML Vial ONE ×2 (19:30→19:31)
[2018-08-22 22:14] VITALS: BMI 22.1
[2018-08-22] MEDS ORDERED: HYDROcodone/Acetaminophen 5/325 mg Tablet PO PRN ×2 (22:40)
[2018-08-22] MEDS ORDERED: Ondansetron ODT 4 MG TAB SL PRN (22:40)
[2018-08-22] MEDS ORDERED: Ondansetron PF 4 MG/2 ML Vial IVP PRN (22:40)
[2018-08-22] MEDS ORDERED: Vancomycin HCl 1.25 GM in Sodium Chloride 0.9% 250 ML 250 ML IVPB SCH (22:45)
[2018-08-22] MEDS ORDERED: Nicotine 7 MG PATCH TOP SCH (22:45)
[2018-08-22] MEDS ORDERED: Sodium Chloride 0.9% 1,000 ML IV SCH (23:00)
[2018-08-22] MEDS: Sodium Chloride 0.9% 1,000 ML IV SCH (23:30)
[2018-08-22] MEDS ORDERED: Nitroglycerin 0.4 MG TAB (25 Tab Bottle) SL PRN (23:47)
[2018-08-22] MEDS ORDERED: tiZANidine HCl 4 MG TAB PO PRN (23:47)
[2018-08-22] MEDS ORDERED: Acetaminophen 650 MG Suppository PR PRN (23:56)
[2018-08-22] MEDS ORDERED: Senokot S 8.6-50 MG TAB PO PRN (23:56)
[2018-08-22] MEDS ORDERED: Bisacodyl 5 MG TAB PO PRN (23:56)
[2018-08-22] MEDS ORDERED: Acetaminophen 325 MG TAB PO PRN (23:56)
[2018-08-23] MEDS ORDERED: Dextrose 5% in Water 1,000 ML IV PRN
[2018-08-23] MEDS ORDERED: Dextrose 50% Abboject 50 ML SYRINGE SLOW IVP PRN
[2018-08-23] MEDS ORDERED: HumaLOG 300 UNITS/3 ML VIAL SC PRN
[2018-08-23] MEDS ORDERED: Vancomycin HCl 1 GM in Premix Bag 1 BAG IVPB SCH (03:00)
[2018-08-23] MEDS: Levothyroxine Sodium 25 MCG TAB PO SCH (05:39)
--- NOTE | 2018-08-23 07:20 | PDOC.FPRHP ---
- Allergies/Adverse Reactions Allergies Allergy/AdvReac Type Severity Reaction Status Date / Time latex Allergy Verified 10/24/17 13:51 Penicillins Allergy Verified 10/24/17 13:51 - Home Medications Medication Instructions Recorded Confirmed Type Dexlansoprazole [Dexilant] 60 mg PO DAILY 11/01/16 10/24/17 History Fesoterodine Fumarate [Toviaz] 4 mg PO DAILY 11/01/16 10/24/17 History Levothyroxine Sodium 25 mcg PO DAILY 11/01/16 10/24/17 History Memantine HCl [Namenda] 10 mg PO BID 11/01/16 10/24/17 History Rivastigmine Tartrate 6 mg PO BID-WM 11/01/16 10/24/17 History [Rivastigmine] buPROPion HCl [Bupropion HCl Sr] 1 tab PO BID 11/01/16 10/24/17 History valACYclovir HCl [valACYclovir] 500 mg PO DAILY 11/01/16 10/24/17 History Empagliflozin [Jardiance] 1 tab PO DAILY 08/16/17 10/24/17 History Lurasidone HCl [Latuda] 1 tab PO DAILY 08/16/17 10/24/17 History Vortioxetine Hydrobromide 1 tab PO DAILY 08/16/17 10/24/17 History [Trintellix] busPIRone HCl [Buspirone HCl] 45 mg PO BID 08/16/17 10/24/17 History Acetaminophen W/ Codeine 1 tab PO Q6HR PRN 08/23/17 10/24/17 History [Acetaminophen/Codeine #3] Amlodipine [Norvasc] 10 mg PO DAILY 08/23/17 10/24/17 History Carbidopa/Levodopa 1 tablet PO TID 08/23/17 10/24/17 History [Carbidopa-Levodopa 25-250 Tab] HYDROcodone/Acetaminophen [Mittie 1 - 2 each PO Q6HR PRN 08/23/17 10/24/17 History 10-325 Tablet] Insulin Glargine,Hum.Rec.Anlog 20 unit SQ DAILY 08/23/17 10/24/17 History [[place] Solostar] Montelukast Sodium [Singulair] 10 mg PO DAILY 08/23/17 10/24/17 History Nitroglycerin [Nitrostat] 0.4 mg SL Q5MIN PRN 08/23/17 10/24/17 History Rosuvastatin [Crestor] 5 mg PO QPM 08/23/17 10/24/17 History Sertraline HCl 100 mg PO DAILY 08/23/17 10/24/17 History tiZANidine HCl [Tizanidine HCl] 4 mg PO TID PRN 08/23/17 10/26/17 History Aspirin [Aspirin Chewable Tablet] 81 mg PO QAM tab 10/31/17 Rx - History PMHx: PSHx: FHx: Social: - Vital signs BP: [] HR: [] RR: [] Tmax: [] Pox: []% on [] Wt: [] FMR H&P: Results - Labs Result Diagrams: 08/22/18 14:30 08/22/18 14:30 Lab results: WBC 8.7 thou/uL (4.8-10.8) 08/22/18 14:30 Hgb 9.8 g/dL (12.0-16.0) L 08/22/18 14:30 Hct 29.2 % (36.0-47.0) L 08/22/18 14:30 MCV 82.9 fL (78.0-98.0) 08/22/18 14:30 Plt Count 306 thou/uL (130-400) 08/22/18 14:30 Neutrophils % 72.9 % (42.0-75.0) 08/22/18 14:30 Sodium 140 mmol/L (136-145) 08/22/18 14:30 Potassium 4.5 mmol/L (3.5-5.1) 08/22/18 14:30 Chloride 100 mmol/L (98-107) 08/22/18 14:30 Carbon Dioxide 29 mmol/L (23-31) 08/22/18 14:30 BUN 63 mg/dL (9.8-20.1) H 08/22/18 14:30 Creatinine 2.15 mg/dL (0.6-1.1) H 08/22/18 14:30 Glucose 110 mg/dL (80-115) 08/22/18 14:30 Lactic Acid 0.9 mmol/L (0.5-2.2) 08/22/18 14:30 Calcium 9.3 mg/dL (7.8-10.44) 08/22/18 14:30 Total Bilirubin 0.4 mg/dL (0.2-1.2) 08/22/18 14:30 AST 16 U/L (5-34) 08/22/18 14:30 ALT Less than 6 U/L (8-55) L 08/22/18 14:30 Alkaline Phosphatase 72 U/L (40-150) 08/22/18 14:30 CK-MB (CK-2) 1.3 ng/mL (0-6.6) 08/22/18 14:30 C-Reactive Protein Less than 0.50 mg/dL (= or < 0.5) 08/23/18 00:25 Serum Total Protein 6.6 g/dL (6.0-8.3) 08/22/18 14:30 Albumin 3.6 g/dL (3.4-4.8) 08/22/18 14:30 Lipase 102 U/L (8-78) H 08/22/18 14:30 Urine Ketones Negative mg/dL (Negative) 08/22/18 14:25 Urine Blood Negative (Negative) 08/22/18 14:25 Urine Nitrite Negative (Negative) 08/22/18 14:25 Ur Leukocyte Esterase Negative (Negative) 08/22/18 14:25 FMR H&P: Upper Level - Plan Date/Time: 08/23/1818 I, [], have evaluated this patient and agree with findings/plan as outlined by program management intern resident. Pertinent changes/additions are listed here.
[2018-08-23] MEDS: Sodium Chloride 0.9% 1,000 ML IV SCH (07:59)
[2018-08-23] MEDS: Bupropion 100 MG SR TAB PO SCH ×2 (08:01→20:50)
[2018-08-23] MEDS: Rivastigmine 1.5 MG CAP PO SCH ×2 (08:01→16:16)
[2018-08-23] MEDS: Carbidopa/Levodopa 25-250 mg Tablet PO SCH ×3 (08:02→20:50)
[2018-08-23] MEDS: Famotidine 20 MG TAB PO SCH (08:03)
[2018-08-23] MEDS: Montelukast Sodium 10 mg Tablet PO SCH (08:03)
[2018-08-23] MEDS: Amlodipine 10 MG TAB PO SCH (08:04)
[2018-08-23] MEDS: TROSPIUM 20 MG TABLET PO SCH (08:04)
[2018-08-23] MEDS: HYDROcodone/Acetaminophen 10/325 mg Tablet PO PRN ×2 (08:06→21:32)
[2018-08-23] MEDS: Heparin 5,000 UNITS/ML VIAL SC SCH ×2 (08:10→20:49)
[2018-08-23] MEDS: Famotidine/PF 20 mg/2ml Vial SLOW IVP SCH ×2 (08:10→20:49)
[2018-08-23 08:19] LABS: Anion Gap 13 mmol/L (10-20); BUN (Urea Nitrogen) 45 mg/dL (9.8-20.1); Calc. Creatinine Clearance 30 mL/min (70-130); Calcium 8.1 mg/dL (7.8-10.44); Carbon Dioxide 23 mmol/L (23-31); Chloride 111 mmol/L (98-107); Estimated GFR-MDRD 30; Glucose 96 mg/dL (80-115); Potassium 4.5 mmol/L (3.5-5.1); Sodium 142 mmol/L (136-145)
[2018-08-23 08:43] LABS: #Eosinphils 0.3 thou/uL (0.0-0.7); #Lymphocytes 1.6 thou/uL (1.20-3.40); #Monocytes 0.7 thou/uL (0.11-0.59); #Neutrophils 4.8 thou/uL (1.40-6.50); %Basophils 0.3 % (0.0-1.0); %Eosinophils 3.9 % (0.0-10.0); %Lymphocytes 21.4 % (21.0-51.0); %Monocytes 8.8 % (0.0-10.0); %Neutrophils 65.6 % (42.0-75.0); Hemoglobin 9.6 g/dL (12.0-16.0); Mean Corpuscular HGB CONC 31.2 g/dL (32.0-36.0); Mean Corpuscular Volume 86.5 fL (78.0-98.0); Mean Platelet Volume 8.5 fL (7.4-10.4); Platelet Count 353 thou/uL (130-400); RBC Distribution Width 18.4 % (11.5-14.5); Red Blood Cell (RBC) Count 3.54 mill/uL (4.20-5.40); White Blood Cell (WBC) Count 7.3 thou/uL (4.8-10.8)
[2018-08-23] MEDS ORDERED: INSULIN GLARGINE HUM REC ANLOG 20 UNIT SQ SCH (09:00)
[2018-08-23] MEDS: Insulin Glargine 20 UNITS in Pre-Filled Syringe 1 EACH SC SCH (09:09)
[2018-08-23] MEDS: busPIRone HCl 10 MG TAB PO SCH ×2 (10:15→20:49)
--- NOTE | 2018-08-23 11:37 | PDOC.PN ---
- Subjective Encounter Start Date: 08/23/18 Encounter Start Time: 09:30 Subjective: no sob, is awake, not fully oriented but follows verbal stimuli -: says her bottom hurts - Objective Resuscitation Status - Order Detail: 08/22/18 23:56 Resuscitation Status Routine Resuscitation Status: FULL: Full Resuscitation MAR Reviewed: Yes Vital Signs & Weight: Vital Signs (12 hours) Temp Pulse Resp BP BP Pulse Ox 08/23/18 08:04 50 L 08/23/18 08:00 93 L 08/23/18 07:59 98.2 F 50 L 18 163/64 H 93 L 08/23/18 03:59 98.4 F 57 L 18 136/71 90 L 08/23/18 03:05 49 L 111/56 L 08/23/18 00:00 98.0 F 45 L 18 91/49 L 90 L Weight Weight 129 lb Result Diagrams: 08/23/18 07:39 08/23/18 07:39 Additional Labs: Accuchecks 08/23/18 03:59 POC Glucose 104 Phys Exam - Physical Examination HEENT: PERRLA, moist MMs Neck: no JVD, supple Respiratory: no wheezing, no rales Cardiovascular: RRR, no significant murmur Gastrointestinal: soft, non-tender, positive bowel sounds Musculoskeletal: no edema, pulses present Neurological: non-focal, moves all 4 limbs Dx/Plan (1) MEETA (acute kidney injury) Code(s): N17.9 - ACUTE KIDNEY FAILURE, UNSPECIFIED Status: Acute (2) Dehydration, severe Code(s): E86.0 - DEHYDRATION Status: Acute (3) Sacral fracture, closed Code(s): S32.10XA - UNSP FRACTURE OF SACRUM, INIT ENCNTR FOR CLOSED FRACTURE Status: Suspected Qualifiers: Encounter type: subsequent encounter Fracture alignment: nondisplaced Comment: S3-4 (4) Anemia, normocytic normochromic Code(s): D64.9 - ANEMIA, UNSPECIFIED Status: Chronic (5) Anxiety and depression Code(s): F41.8 - OTHER SPECIFIED ANXIETY DISORDERS Status: Chronic (6) Chronic pain syndrome Code(s): G89.4 - CHRONIC PAIN SYNDROME Status: Chronic (7) Dementia Code(s): F03.90 - UNSPECIFIED DEMENTIA WITHOUT BEHAVIORAL DISTURBANCE Status: Chronic Qualifiers: Dementia type: Parkinson's disease Dementia behavioral disturbance: with behavioral disturbance Qualified Code(s): G20 - Parkinson's disease; F02.81 - Dementia in other diseases classified elsewhere with behavioral disturbance (8) Diabetes mellitus Code(s): E11.9 - TYPE 2 DIABETES MELLITUS WITHOUT COMPLICATIONS Status: Chronic Qualifiers: Diabetes mellitus type: type 2 Diabetes mellitus terminal make up operator insulin use: with terminal make up operator use Diabetes mellitus complication status: with neurologic complications Diabetes mellitus complication detail: with polyneuropathy Qualified Code(s): E11.42 - Type 2 diabetes mellitus with diabetic polyneuropathy; Z79.4 - skilled nursing (current) use of insulin; Z79.4 - predatory animal exterminator ( current) use of insulin; Z79.4 - predatory animal exterminator (current) use of insulin; Z79.4 - skilled nursing (current) use of insulin (9) Dyslipidemia Code(s): E78.5 - HYPERLIPIDEMIA, UNSPECIFIED Status: Chronic (10) GERD (gastroesophageal reflux disease) Code(s): K21.9 - GASTRO-ESOPHAGEAL REFLUX DISEASE WITHOUT ESOPHAGITIS Status: Chronic Qualifiers: Esophagitis presence: esophagitis presence not specified Qualified Code(s) : K21.9 - Gastro-esophageal reflux disease without esophagitis (11) HTN (hypertension) Code(s): I10 - ESSENTIAL (PRIMARY) HYPERTENSION Status: Chronic Qualifiers: Hypertension type: essential hypertension Qualified Code(s): I10 - Essential (primary) hypertension (12) Hypothyroidism Code(s): E03.9 - HYPOTHYROIDISM, UNSPECIFIED Status: Chronic Qualifiers: Hypothyroidism type: unspecified Qualified Code(s): E03.9 - Hypothyroidism , unspecified (13) Parkinson disease Code(s): G20 - PARKINSON'S DISEASE Status: Chronic (14) Polypharmacy Code(s): Z79.899 - OTHER NURSING HOME (CURRENT) DRUG THERAPY Status: Chronic - Plan d/w radiologist, not enough fluid to aspirate, likely fracture -: CT wo contrast to delineate if fracture of sacrum is present -: is on vanc , blood cs were obtained yesterday, ID consult -: continue asp, buspar, norvasc, sinemet, synthroid, crestor -: watch for renal function with vanc-pharmacy to dose per protocol * . bun/cr better this am from 63/2.1 PT/OT eval ativan prn for severe anxiety/agitation. gentle iv hydration will likely need swing bed if she is from home. Review of Systems - Medications/Allergies Allergies/Adverse Reactions: Allergies Allergy/AdvReac Type Severity Reaction Status Date / Time latex Allergy Verified 10/24/17 13:51 Penicillins Allergy Verified 10/24/17 13:51 Medications: Current Medications Acetaminophen (Tylenol) 650 mg PO Q4H PRN PRN Reason: Headache/Fever/Mild Pain (1-3) Last Admin: 08/23/18 03:08 Dose: 650 mg Acetaminophen (Tylenol) 650 mg [place] Q4H PRN PRN Reason: Headache/Fever/Mild Pain (1-3) Acetaminophen/Codeine Phosphate (Tylenol #3) 1 tab PO Q6H PRN PRN Reason: Moderate Pain (4-6) Hydrocodone Bitart/Acetaminophen ([place] 10/325) 1 tab PO Q6H PRN PRN Reason: Pain 7-10 Last Admin: 08/23/18 08:06 Dose: 1 tab Amlodipine Besylate (Norvasc) 10 mg PO DAILY [facility] Last Admin: 08/23/18 08:04 Dose: 10 mg Aspirin (Aspirin Chewable) 81 mg PO QAM [facility] Last Admin: 08/23/18 08:02 Dose: 81 mg Bisacodyl (Dulcolax) 10 mg PO DAILYPRN PRN PRN Reason: Constipation Bupropion HCl (Wellbutrin Sr) 100 mg PO BID [facility] Last Admin: 08/23/18 08:01 Dose: 100 mg Buspirone HCl (Buspar) 45 mg PO BID [facility] Last Admin: 08/23/18 10:15 Dose: Not Given Carbidopa/Levodopa (Sinemet 25-250) 1 tab PO TID [facility] Last Admin: 08/23/18 08:02 Dose: 1 tab Dextrose/Water (Dextrose 50%) 25 gm SLOW IVP PRN PRN PRN Reason: Hypoglycemia Famotidine (Pepcid) 20 mg SLOW IVP Q12HR [facility] Last Admin: 08/23/18 08:10 Dose: Not Given Famotidine (Pepcid) 20 mg PO DAILY [facility] Last Admin: 08/23/18 08:03 Dose: 20 mg Glucagon (Glucagon) 1 mg IM PRN PRN PRN Reason: Hypoglycemia Heparin Sodium (Porcine) (Heparin) 5,000 units SC BID [facility] Last Admin: 08/23/18 08:10 Dose: 5,000 units Sodium Chloride (Normal Saline 0.9%) 1,000 mls @ 70 mls/hr IV .[id number] [facility] Last Admin: 08/23/18 07:59 Dose: 1,000 mls Dextrose/Water (D5w) 1,000 mls @ 0 mls/hr IV .Q0M PRN PRN Reason: Hypoglycemia Insulin Glargine 20 units/ (Miscellaneous Medication) 0.2 mls @ 0 mls/hr SC QAM [facility] Last Admin: 08/23/18 09:09 Dose: 0.2 mls Vancomycin HCl 1 gm/ Device 200 mls @ 200 mls/hr IVPB .PENDING LEVEL [facility] Insulin Human Lispro (Humalog) 0 units SC .MILD SLIDING SCALE PRN PRN Reason: Mild Correctional Scale Insulin Human Lispro (Humalog) 0 units SC .BEDTIME SLIDING SC PRN PRN Reason: Bedtime Correctional Scale Levothyroxine Sodium (Synthroid) 25 mcg PO 0600 [facility] Last Admin: 08/23/18 05:39 Dose: 25 mcg Lorazepam (Ativan) 1 mg SLOW IVP Q4H PRN PRN Reason: Anxiety/Agitation Memantine (Namenda) 10 mg PO BID [facility] Last Admin: 08/23/18 08:04 Dose: 10 mg Miscellaneous Medication (Pharmacy To Dose) 1 each IVPB ONE PRN PRN Reason: Pharmacy to dose Stop: 09/02/18 23:55 Montelukast Sodium (Singulair) 10 mg PO DAILY [facility] Last Admin: 08/23/18 08:03 Dose: 10 mg Nitroglycerin (Nitrostat) 0.4 mg SL Q5MIN PRN PRN Reason: Chest Pain Rivastigmine (Exelon) 6 mg PO BID-[facility] Last Admin: 08/23/18 08:01 Dose: 6 mg Rosuvastatin Calcium (Crestor) 5 mg PO QPM [facility] Senna/Docusate Sodium (Senokot S) 2 tab PO BID PRN PRN Reason: Constipation Sertraline HCl (Zoloft) 100 mg PO DAILY [facility] Last Admin: 08/23/18 08:03 Dose: 100 mg Tizanidine HCl (Zanaflex) 4 mg PO TID PRN PRN Reason: Muscle Spasm Trospium (Trospium) 20 mg PO DAILY [facility] Last Admin: 08/23/18 08:04 Dose: 20 mg
[2018-08-23] MEDS: Lorazepam 2 MG/ML VIAL SLOW IVP PRN (11:49)
--- NOTE | 2018-08-23 14:24 | CT ---
CT PELVIS NONCONTRAST: Date: 08/23/18 HISTORY: Sacrococcygeal lesion found on MRI lumbar spine of 08/22/18. Rule out fracture. FINDINGS: At the S4-5 junction in the sacrum, there is focal thickening of bone as demonstrated on the sagittal images. There are subtle, mixed, slightly high and slightly low attenuation in this area. This corre sponds to the region of signal abnormality on yesterday's MRI. The osseous expansion could represent callus. There is a left total joint replacement hip prosthesis causing streak artifact, obscuring portions of the pelvis. There is a small amount of free fluid in the dependent, posterior portion of the pelvic cavity. Grade I or II anterolisthesis of L4 on L5. Severe right-sided degenerative disc disease at L4 -5. Severe left-sided degenerative disc disease at L3-4. No spondylolysis. Severe facet DJD at L4-5. Severe bilateral neural foraminal stenosis at L4-5, right worse than left. Transition level at L5-S1 junction with assimilation joint. Multiple ossific nonacute fracture fragments versus heterotopic oss ification, in the soft tissues adjacent to the right greater trochanter. Callus around an old fractur e involving much of the left iliac wing. IMPRESSION: 1. The lower sacral lesion is favored to be a subacute, healing fracture. Continued follow-up is rec ommended with MRI and/or noncontrast CT in 3 months. 2. Severe lower lumbar spondylosis, with Grade I or II spondylolisthesis secondary to severe facet o steoarthrosis, associated with severe neural foraminal stenosis. 3. Status post total left hip replacement arthroplasty. 4. Old fractures of left iliac wing and right greater trochanter. 5. Small amount of free fluid within the pelvic cavity. POS: [facility]
[2018-08-23] MEDS ORDERED: Rosuvastatin 5 MG TAB PO SCH (21:00)
[2018-08-24] MEDS: Acetaminophen/Codeine 30-300mg Tablet PO PRN ×3 (00:03→15:17)
--- NOTE | 2018-08-24 00:16 | CON ---
DATE OF CONSULTATION: 08/23/2018 REASON FOR CONSULTATION: Concerned with MRI findings in lumbosacral spine. HISTORY OF PRESENT ILLNESS: A 63-year-old, who has a history of Parkinson disease and hyperlipidemia as well as type 2 diabetes, brought to the hospital because of blisters and pain in the coccygeal and presacral region. No fever or chills. No headaches. No visual symptoms. No dyspnea, cough, or sputum production. No abdominal pain. No genitourinary symptoms. The patient is able to ambulate short distances, but uses a wheelchair otherwise. PAST MEDICAL HISTORY: Parkinson disease, cognitive dysfunction, iron deficiency anemia, hyperlipidemia, diabetes type 2, hypertension, prior CVA. PAST SURGICAL HISTORY: Left hip replacement, left shoulder replacement, and tubal ligation. SOCIAL HISTORY: Never smoker. FAMILY HISTORY: Coronary artery disease. ALLERGIES: PENICILLINS WITH RASH. CURRENT MEDICATIONS: 1. Tylenol. 2. [place]. 3. Norvasc. 4. Aspirin. 5. Dulcolax. 6. Wellbutrin. 7. BuSpar. 8. Sinemet. 9. Pepcid. 10. Glucagon. 11. Insulin. 12. Zocor. 13. Vancomycin. PHYSICAL EXAMINATION: VITAL SIGNS: T-max 98.4. Other vital signs with slight elevation of systolic blood pressure, pulse 50, respirations 18, O2 sat 92%. GENERAL: She appears somewhat apathetic. She establishes eye contact. Answers questions with little bit of hesitation. Follows commands. SKIN: Shows the area of mild erythema in the presacral region. She has a round irregular ulcer in the medial aspect of the right leg with a yellow scab covering 100% of the base. Minimal erythema surrounding this lesion. She has this area of erythema in the presacral area, but no ulcer. No skin integrity, discontinuity. No lymphadenopathy. HEENT: Ocular movements conjugate. Oral cavity with no findings of significance. NECK: Supple. LUNGS: Symmetric. Air entry without crackles or wheezing. HEART: S1 and S2. Regular rate. ABDOMEN: Soft, nondistended, nontender. No ascites, no bladder distention. NEUROLOGIC: She moves extremities on command. She has little bit of rigidity, but no tremor was noted. She is able to move extremities, but is weak diffusely. Awake, oriented. Little bit of difficulty with recollection of events. LABORATORY DATA: White cell count 8.7 and 7.3, hemoglobin 9.8, MCV 82, platelets 306 with normal differential. Chemistries unremarkable except for creatinine 2.15, which is above her baseline of 1.0 a few months ago. Urinalysis was normal. Toxicology with cannabinoids. Microbiology with negative blood cultures. The patient had a lumbar spine MRI, which showed increased T2 signal in the sacrum at S3-S4 level. The patient had a pelvis CT, which showed fracture. ASSESSMENT: Parkinson disease, prior cerebrovascular accident with mobility impairment, and pain in the presacral and sacral region likely due to fracture. The absence of skin ulcer or other penetrating skin integrity issue argues against an infection. Hematogenous infections in this location are not common. I would recommend discontinuation of antimicrobial therapy and manage it as a fracture. Job ID: [id number] [facility]
[2018-08-24] MEDS ORDERED: Vancomycin HCl 1 GM in Premix Bag 1 BAG IVPB SCH (01:00)
[2018-08-24 01:39] LABS: Vancomycin, Random 10.7 ug/mL (See Comment)
[2018-08-24] MEDS: Lorazepam 2 MG/ML VIAL SLOW IVP PRN (02:38)
[2018-08-24] MEDS: HYDROcodone/Acetaminophen 10/325 mg Tablet PO PRN ×2 (03:48→10:04)
[2018-08-24] MEDS: Sodium Chloride 0.9% 1,000 ML IV SCH (05:08)
[2018-08-24] MEDS: Levothyroxine Sodium 25 MCG TAB PO SCH (05:54)
[2018-08-24] MEDS: HumaLOG 300 UNITS/3 ML VIAL SC PRN ×2 (05:54→11:49)
[2018-08-24] MEDS: Carbidopa/Levodopa 25-250 mg Tablet PO SCH ×2 (08:03→15:17)
[2018-08-24] MEDS: Rivastigmine 1.5 MG CAP PO SCH (08:03)
[2018-08-24] MEDS: TROSPIUM 20 MG TABLET PO SCH (08:04)
[2018-08-24] MEDS: Montelukast Sodium 10 mg Tablet PO SCH (08:04)
[2018-08-24] MEDS: Heparin 5,000 UNITS/ML VIAL SC SCH (08:04)
[2018-08-24] MEDS: Amlodipine 10 MG TAB PO SCH (08:04)
[2018-08-24] MEDS: Bupropion 100 MG SR TAB PO SCH (08:04)
[2018-08-24] MEDS: Famotidine/PF 20 mg/2ml Vial SLOW IVP SCH (08:04)
[2018-08-24 08:30] LABS: #Basophils 0.1 thou/uL (0.0-0.2); #Eosinphils 0.1 thou/uL (0.0-0.7); #Monocytes 0.5 thou/uL (0.11-0.59); #Neutrophils 6.1 thou/uL (1.40-6.50); %Basophils 0.8 % (0.0-1.0); %Eosinophils 1.6 % (0.0-10.0); %Monocytes 6.9 % (0.0-10.0); %Neutrophils 77.8 % (42.0-75.0); Hemoglobin 9.8 g/dL (12.0-16.0); Mean Corpuscular HGB CONC 31.7 g/dL (32.0-36.0); Mean Corpuscular Hemoglobin 27.4 pg (27.0-31.0); Mean Corpuscular Volume 86.6 fL (78.0-98.0); Mean Platelet Volume 7.8 fL (7.4-10.4); Platelet Count 364 thou/uL (130-400); RBC Distribution Width 18.1 % (11.5-14.5); Red Blood Cell (RBC) Count 3.58 mill/uL (4.20-5.40); White Blood Cell (WBC) Count 7.8 thou/uL (4.8-10.8)
[2018-08-24 09:03] LABS: Anion Gap 10 mmol/L (10-20); BUN (Urea Nitrogen) 23 mg/dL (9.8-20.1); Calc. Creatinine Clearance 36 mL/min (70-130); Calcium 8.2 mg/dL (7.8-10.44); Carbon Dioxide 22 mmol/L (23-31); Chloride 113 mmol/L (98-107); Estimated GFR-MDRD 37; Glucose 143 mg/dL (80-115); Potassium 3.8 mmol/L (3.5-5.1); Sodium 141 mmol/L (136-145)
[2018-08-24] MEDS: Famotidine 20 MG TAB PO SCH (09:05)
[2018-08-24] MEDS: Insulin Glargine 20 UNITS in Pre-Filled Syringe 1 EACH SC SCH (09:14)
[2018-08-24] MEDS: busPIRone HCl 10 MG TAB PO SCH (10:27)
--- NOTE | 2018-08-24 10:59 | PDOC.PN ---
- Subjective Encounter Start Date: 08/24/18 Encounter Start Time: 08:30 Subjective: feels better, wants to go home -: does not want any placement or rehab - Objective Resuscitation Status - Order Detail: 08/22/18 23:56 Resuscitation Status Routine Resuscitation Status: FULL: Full Resuscitation MAR Reviewed: Yes Vital Signs & Weight: Vital Signs (12 hours) Temp Pulse Resp BP BP Pulse Ox 08/24/18 09:00 91 L 08/24/18 08:04 73 126/72 08/24/18 08:01 98.5 F 73 16 126/72 91 L 08/24/18 03:45 98.6 F 67 20 133/74 92 L Weight Admit Weight 129 lb Weight 129 lb I&O: 08/23/18 08/24/18 08/25/18 06:59 06:59 06:59 Intake Total 4420 Output Total 2400 Balance 2019 Result Diagrams: 08/24/18 08:21 08/24/18 08:21 Additional Labs: Accuchecks 08/24/18 08/23/18 08/23/18 03:43 18:53 16:18 POC Glucose 240 H 145 H 100 08/23/18 12:39 POC Glucose 192 H Phys Exam - Physical Examination HEENT: PERRLA, moist MMs Neck: no JVD, supple Respiratory: no wheezing, no rales Cardiovascular: RRR, no significant murmur Gastrointestinal: soft, non-tender, positive bowel sounds Musculoskeletal: no edema, pulses present Neurological: non-focal, moves all 4 limbs Psychiatric: normal affect, A&O x 3 Dx/Plan (1) MEETA (acute kidney injury) Code(s): N17.9 - ACUTE KIDNEY FAILURE, UNSPECIFIED Status: Acute (2) Dehydration, severe Code(s): E86.0 - DEHYDRATION Status: Acute (3) Sacral fracture, closed Code(s): S32.10XA - UNSP FRACTURE OF SACRUM, INIT ENCNTR FOR CLOSED FRACTURE Status: Suspected Qualifiers: Encounter type: subsequent encounter Fracture alignment: nondisplaced Comment: S3-4 (4) Anemia, normocytic normochromic Code(s): D64.9 - ANEMIA, UNSPECIFIED Status: Chronic (5) Anxiety and depression Code(s): F41.8 - OTHER SPECIFIED ANXIETY DISORDERS Status: Chronic (6) Chronic pain syndrome Code(s): G89.4 - CHRONIC PAIN SYNDROME Status: Chronic (7) Dementia Code(s): F03.90 - UNSPECIFIED DEMENTIA WITHOUT BEHAVIORAL DISTURBANCE Status: Chronic Qualifiers: Dementia type: Parkinson's disease Dementia behavioral disturbance: with behavioral disturbance Qualified Code(s): G20 - Parkinson's disease; F02.81 - Dementia in other diseases classified elsewhere with behavioral disturbance (8) Diabetes mellitus Code(s): E11.9 - TYPE 2 DIABETES MELLITUS WITHOUT COMPLICATIONS Status: Chronic Qualifiers: Diabetes mellitus type: type 2 Diabetes mellitus terminal operator insulin use: with fci use Diabetes mellitus complication status: with neurologic complications Diabetes mellitus complication detail: with polyneuropathy Qualified Code(s): E11.42 - Type 2 diabetes mellitus with diabetic polyneuropathy; Z79.4 - watermelon inspector (current) use of insulin; Z79.4 - watermelon inspector ( current) use of insulin; Z79.4 - watermelon inspector (current) use of insulin; Z79.4 - FCI (current) use of insulin (9) Dyslipidemia Code(s): E78.5 - HYPERLIPIDEMIA, UNSPECIFIED Status: Chronic (10) GERD (gastroesophageal reflux disease) Code(s): K21.9 - GASTRO-ESOPHAGEAL REFLUX DISEASE WITHOUT ESOPHAGITIS Status: Chronic Qualifiers: Esophagitis presence: esophagitis presence not specified Qualified Code(s) : K21.9 - Gastro-esophageal reflux disease without esophagitis (11) HTN (hypertension) Code(s): I10 - ESSENTIAL (PRIMARY) HYPERTENSION Status: Chronic Qualifiers: Hypertension type: essential hypertension Qualified Code(s): I10 - Essential (primary) hypertension (12) Hypothyroidism Code(s): E03.9 - HYPOTHYROIDISM, UNSPECIFIED Status: Chronic Qualifiers: Hypothyroidism type: unspecified Qualified Code(s): E03.9 - Hypothyroidism , unspecified (13) Parkinson disease Code(s): G20 - PARKINSON'S DISEASE Status: Chronic (14) Polypharmacy Code(s): Z79.899 - OTHER HALFWAY (CURRENT) DRUG THERAPY Status: Chronic - Plan may dc home, d/w son over phone, is aware she doesn't want placement -: needs to reduce her psych meds dosage via pcp/psychiatrist, informed son an -: -d patient about it. -: lidocaine tts for sacral pain -: hemostable * .
[2018-08-24 11:39] VITALS: TEMP 97.7
[2018-08-24 11:53] VITALS: BP 152/83
--- NOTE | 2018-08-24 13:41 | DIS ---
DATE OF ADMISSION: 08/22/2018 DATE OF DISCHARGE: 08/24/2018 DISCHARGE DISPOSITION: To home with Home Health. PRIMARY DISCHARGE DIAGNOSES: 1. Sacral fracture at S3-S4 area. 2. Acute kidney injury. 3. Severe dehydration. 4. History of multiple falls due to polypharmacy and Parkinson disease. 5. Chronic anemia. 6. Anxiety. 7. Depression. 8. Chronic pain syndrome. 9. Dementia. 10. Parkinson disease. 11. Diabetes mellitus type 2. 12. Dyslipidemia. 13. Gastroesophageal reflux disease. 14. Hypertension. 15. Hypothyroidism. PROCEDURES DONE DURING HOSPITALIZATION: MRI of lumbar spine without contrast done showed increased abnormal T2 signal on the basis of edema within the sacrum at the S3-S4 level with small volume fluid signal intensity, posterior and anterior to this within the soft tissues. It could be related to infection and/or fracture. CT pelvis done showed lower sacral lesion to be subacute healing fracture, old fracture of left iliac wing, and right greater trochanter. Blood cultures x2, no growth. Hemoglobin and hematocrit 9.8 and 31, platelets count 364. On discharge, BUN and creatinine were 23 and 1.4. Admitting BUN and creatinine were 63 and 2.1. Urine tox screen was positive for cannabinoids and opioids. DISCHARGE MEDICATIONS: 1. Tylenol with codeine q.6 hourly p.r.n. 2. Norvasc 10 mg daily. 3. Bupropion 100 mg twice daily extended-release. 4. Buspirone 45 mg twice daily. 5. Carbidopa-levodopa 25/250 mg p.o. three times daily. 6. Empagliflozin 25 mg p.o. daily. 7. Dexlansoprazole 60 mg p.o. daily. 8. Glargine insulin 20 units subcu daily. 9. Levothyroxine 25 mcg daily. 10. Latuda 40 mg daily. 11. Namenda 10 mg twice daily. 12. Singulair 10 mg daily. 13. Rivastigmine 6 mg p.o. twice daily. 14. Crestor 5 mg p.o. q.p.m. 15. Sertraline 100 mg p.o. daily. 16. Vortioxetine 20 mg daily. 17. Lidoderm transdermal patch daily for a period of 10 days for the sacral pain from the fracture. 18. Aspirin 81 mg p.o. daily. ALLERGIES: ALLERGIC TO LATEX AND PENICILLIN. DISCHARGE PLAN: The patient is to follow up with Dr. Tim Link in 1 week. BRIEF COURSE: Patient initially came in with complaints of pain in the lower back. She has had this for the last 4 weeks or so. She has had initial MRI of the lumbar spine done, which showed edema with possible suspicion for either infection or fracture. Subsequent CT pelvis done showed the findings to be fracture of the sacrum. The patient has had history of multiple falls with polypharmacy. She was on multiple psychotropic medications, and I have advised the patient and her son to go and see Dr. Link, her primary care physician to slowly deescalate medications. I have taken her off tizanidine and [place], but she is still on Tylenol 3. Blood cultures x2 were negative. The patient was briefly on vancomycin due to suspicion of possible osteomyelitis. No external injury was seen at the sacral level. The patient did not want to be placed anywhere. She had acute kidney injury with severe dehydration, which has resolved. The patient is at risk for falls and the son is clearly aware of it. The patient does not want any placement and come what may wants to go home. In view of this, Home Health with Physical Therapy has been arranged. Please see a [id number] documentation on [employer] for the day of discharge. Job ID: [id number] MTDD
== END 2018-08-24 16:52 | disposition home health service (06) | DRG 683 ==
LOC: SCSER 13:22 → T4-A 18:59
PROVIDERS: ADMIT Internal Medicine; ATTEND Internal Medicine
DX: N17.9 Acute kidney failure, unspecified (principal); S32.10XA Unspecified fracture of sacrum, initial encounter for closed fracture; G20 Parkinson's disease; F02.80 Dementia in other diseases classified elsewhere, unspecified severity, without behavioral disturbance, psychotic disturbance, mood disturbance, and anxiety; E86.0 Dehydration; F41.9 Anxiety disorder, unspecified; F32.9 Major depressive disorder, single episode, unspecified; G89.4 Chronic pain syndrome; E11.9 Type 2 diabetes mellitus without complications; E78.5 Hyperlipidemia, unspecified; K21.9 Gastro-esophageal reflux disease without esophagitis; I10 Essential (primary) hypertension; E03.9 Hypothyroidism, unspecified
CPT/HCPCS: 36415; 36416; 71045; 72148; 72192; 80048; 80053; 80202; 80306; 81003; 82553; 83605; 83690; 84484; 85025; 86140; 87040; 93005; A4353; G8978-GP-CK; G8979-GP-CI; G8987-GO-CJ; G8988-GO-CI; J1644; J1956; J2060; J2270; J2405; J3370; J7050; S0028

== ENCOUNTER 2018-12-12 13:21 | Outpatient (CLI) | payer MEDICARE, MEDICAID ==
--- NOTE | 2018-12-18 13:22 | MMO ---
Bilateral MAMMO Bilat Screen DDI. CLINICAL HISTORY: Patient is 63 years old and is seen for screening. The patient has no family history of breast cancer. The patient has no personal history of cancer. VIEWS: The views performed were: bilateral craniocaudal and bilateral mediolateral oblique. FILMS COMPARED: The present examination has been compared to prior imaging studies performed at [facility] on 12/06/2017, at [facility] on 12/24/2011, 12/25/2012, 02/14/2014, 03/27/2015 and 11/19/2016, and at [facility] on 02/07/2004, 05/05/2006 and 06/26/2009. This study has been interpreted with the assistance of computer-aided detection. MAMMOGRAM FINDINGS: There are scattered fibroglandular densities. There is a new focal asymmetry seen in the MLO view only seen in the right breast. There are no suspicious masses, calcifications or architectural distortion in the left breast. In the left breast, there are no suspicious masses, calcifications or areas of architectural distortion. IMPRESSION: NEW FOCAL ASYMMETRY IN THE RIGHT BREAST REQUIRES ADDITIONAL EVALUATION. ADDITIONAL IMAGING. ACR BI-RADS Category 0 - Incomplete: Need additional imaging evaluation. [facility] will notify the patient of the need for additional imaging services. MAMMOGRAPHY NOTE: 1. A negative mammogram report should not delay a biopsy if a dominant of clinically suspicious mass is present. 2. Approximately 10% to 15% of breast cancers are not detected by mammography. 3. Adenosis and dense breasts may obscure an underlying neoplasm.
== END 2018-12-12 13:22 | disposition home or self-care (01) ==
LOC: SCSMAMMO 13:21
PROVIDERS: ATTEND Family Medicine
DX: Z12.31 Encounter for screening mammogram for malignant neoplasm of breast (principal)
CPT/HCPCS: 77067

== ENCOUNTER 2019-01-09 09:06 | Outpatient (CLI) | payer MEDICARE, MEDICAID ==
--- NOTE | 2019-01-09 09:32 | MMO ---
Right Breast MAMMO Unilat Diag DDI RT+JASON. CLINICAL HISTORY: Patient is 63 years old and is seen for diagnostic exam. The patient has no family history of breast cancer. The patient has no personal history of cancer. VIEWS: The views performed were: right craniocaudal spot compression with tomosynthesis; right mediolateral oblique spot compression with tomosynthesis; and right mediolateral with tomosynthesis. FILMS COMPARED: The present examination has been compared to prior imaging studies performed at [facility] on 12/06/2017 and 12/12/2018, at [facility] on 12/24/2011, 12/25/2012, 02/14/2014, 03/27/2015 and 11/19/2016, and at [facility] on 02/07/2004, 05/05/2006 and 06/26/2009. MAMMOGRAM FINDINGS: There are scattered fibroglandular densities. Tomosynthesis images show the abnormality to represent superimpostion of normal breast parenchyma. There are no suspicious masses, suspicious calcifications, or new areas of architectural distortion. IMPRESSION: THERE IS NO MAMMOGRAPHIC EVIDENCE OF MALIGNANCY. A ROUTINE FOLLOW-UP MAMMOGRAM IN 1 YEAR IS RECOMMENDED. THE RESULTS OF THIS EXAM WERE SENT TO THE PATIENT. ACR BI-RADS Category 2 - Benign finding MAMMOGRAPHY NOTE: 1. A negative mammogram report should not delay a biopsy if a dominant of clinically suspicious mass is present. 2. Approximately 10% to 15% of breast cancers are not detected by mammography. 3. Adenosis and dense breasts may obscure an underlying neoplasm.
== END 2019-01-09 09:07 | disposition home or self-care (01) ==
LOC: BICMAMMO 09:06
PROVIDERS: ATTEND Family Medicine
DX: N64.89 Other specified disorders of breast (principal)
CPT/HCPCS: 77065; G0279

== ENCOUNTER 2019-01-30 12:47 | Outpatient (CLI) | payer MEDICARE, MEDICAID ==
--- NOTE | 2019-01-30 13:24 | RAD ---
XR Cervical Spine 4 View Min HISTORY: Chronic neck pain. COMPARISON: CT examination of 03/18/2018. FINDINGS: Flexion and extension views were performed. The patient has undergone anterior cervical fus ion with plate and screws placed from C5 to C7. Markers of disc implants are within the confines of the disc levels. No abnormal motion on the flexion or extension views. Deformity of the dens of C2 is a similar appearance to the previous examination. The patient has previous C1 fractures. These findings appear stable. Prominent carotid bulb calcifications are noted. IMPRESSION: Postoperative changes and old posttraumatic changes of the spine.
--- NOTE | 2019-01-30 15:17 | MRI ---
CERVICAL SPINE MRI WITHOUT CONTRAST: Date: 01/30/19 COMPARISON: None available. HISTORY: Cervical spondylosis, neck pain. TECHNIQUE: Multiplanar, multisequence MR imaging of the cervical spine provided without contrast. FINDINGS: Detailed assessment is limited secondary to persistent patient motion artifact, which is most signifi cant on the axial imaging. Sagittal STIR imaging demonstrates no focal area of osseous marrow edema. Anterior diskectomy and fus ion hardware at C5-6/C6-7 noted. There is anterior tilt of the dens, similar when compared to a cervical spine CT performed 03/18/18. There is moderate degenerative change at the atlantoaxial interspace. Prior CT examination performed 2018 demonstrates multiple C1 ring fractures, which cannot be discrete ly visualized on this examination. There is anterior displacement of the posterior ring of C1 with re spect to the spinous process of the C2 vertebral body, a stable finding when compared to the 03/18/18 examination, which leads to stable moderate/severe narrowing of the central canal at the axial level of the C1 ring. Craniocervical junction appears intact. C2-3: Facet and uncovertebral osteophyte formation noted, right greater than left. Mild right neural foraminal stenosis. Disc desiccation and minimal disc bulge with mild central canal stenosis. No lef t neural foraminal stenosis. C3-4: Disc space narrowing, disc desiccation, and mild disc bulge with moderate central canal stenos is. Facet and uncovertebral osteophyte formation noted bilaterally, left greater than right, with mil d left neural foraminal stenosis. C4-5: There is disc space narrowing and disc desiccation. There is a small central disc protrusion w hich effaces the ventral thecal sac and causes mild central canal stenosis. Bilateral facet and uncov ertebral osteophyte formation with mild bilateral neural foraminal stenosis. C5-6: There is disc space narrowing and disc desiccation. Small disc osteophyte complex present with mild central canal stenosis. Bilateral facet and uncovertebral osteophyte formation with moderate le ft and mild right neural foraminal stenosis. C6-7: Mild disc bulge. Mild central canal stenosis. Mild bilateral facet hypertrophy and uncovertebr al osteophyte formation with moderate left and mild right neural foraminal stenosis. C7-T1: There is disc desiccation and disc space narrowing with mild bilateral facet hypertrophy. No significant central canal or neural foraminal stenosis. No focal area of abnormal signal intensity is identified within the cervical cord. IMPRESSION: Motion limited examination demonstrating multilevel degenerative change within the cervical spine. Th ere is moderate/severe central canal stenosis at the C1-2 articulation as detailed above. POS: TPC
--- NOTE | 2019-01-30 15:40 | MRI ---
LUMBAR SPINE MRI WITHOUT CONTRAST: 01/30/19 COMPARISON: 08/22/18 HISTORY: Low back pain for months. TECHNIQUE: Multiplanar and multisequence MRI imaging of the lumbar spine without contrast. FINDINGS: The sagittal STIR imaging demonstrates no focal area of osseous marrow edema. On the basis of five lumbar type vertebral bodies, conus medullaris terminates in the T12-L1 region. There is anterolisthesis of L4 on L5 measuring approximately 9 mm, as seen on the 08/22/18 exam. At T11-12, there is disc space narrowing and disc desiccation with minimal disc osteophyte complex ca using no central canal or neural foraminal stenosis. T12-L1: Intervertebral disc height and signal intensity grossly unremarkable. No significant central canal or neural foraminal stenosis. L1-2: Mild disc space narrowing. Mild bilateral facet hypertrophy. Mild left neural foraminal stenosi s. No significant central canal or right neural foraminal stenosis. L2-3: Bilateral facet hypertrophy and hypertrophy of the ligamentum flavum, left greater than right. Moderate left and mild right neural foraminal stenosis. No significant central canal stenosis. L3-4: There is disc space narrowing and disc desiccation with mild disc bulge. There is bilateral fac et hypertrophy, left greater than right. There is no significant central canal stenosis. There is sev ere left neural foraminal stenosis and mild right neural foraminal stenosis. L4-5: There is disc space narrowing and disc desiccation. There is prominent facet hypertrophy, right greater than left. There is severe right and moderate left neural foraminal stenosis. There is sever e right lateral recess stenosis. L5-S1: Bilateral facet hypertrophy with no significant central canal or neural foraminal stenosis. T2 hyperintense lesion in the superior pole of left kidney noted, consistent with a renal cyst. No ac kizzy retroperitoneal abnormality. IMPRESSION: Stable multilevel degenerative change within the lumbar spine as detailed above, most severe at L4-5 on the right. POS: TPC
== END 2019-01-30 12:48 | disposition home or self-care (01) ==
LOC: SCSMRI 12:47
PROVIDERS: ATTEND Neurological Surgery
DX: M54.5 Low back pain (principal); M47.812 Spondylosis without myelopathy or radiculopathy, cervical region; M47.816 Spondylosis without myelopathy or radiculopathy, lumbar region; Z98.890 Other specified postprocedural states
CPT/HCPCS: 72050; 72141; 72148

== ENCOUNTER 2019-03-28 09:31 | Outpatient (CLI) | payer MEDICARE, MEDICAID ==
--- NOTE | 2019-03-28 10:32 | RAD ---
LUMBAR SPINE 2 VIEWS: Date: 03/28/19 HISTORY: Lumbar radiculopathy. FINDINGS: This exam is severely limited. In the AP projection, band within the bowel completely obscures the julia mbar vertebra. There is evidence of a scoliotic curvature to the right, but this cannot be adequately evaluated. On the lateral view, the contrast-filled bowel also obscures the lumbar vertebra. There is evidence o f degenerative change and disc narrowing in the lower lumbar spine with evidence of spondylolisthesis at L5-S1 and a transitional S1 vertebra. Degenerative changes at the lower lumbar spine were also se en on the prior exam of 2016. IMPRESSION: Degenerative changes of the lower lumbar spine with anterolisthesis of L5 on S1. The exam is severely limited due to contrast-filled bowel obscuring the lumbar vertebra. There is evidence of loss of height of the T10 and T11 vertebra which appear to have progressed when compared to the 2016 exam. This should be further evaluated with dedicated thoracic spine. POS: OFF
== END 2019-03-28 09:32 | disposition home or self-care (01) ==
LOC: TBSIIMAG 09:31
PROVIDERS: ATTEND Neurological Surgery
DX: M47.26 Other spondylosis with radiculopathy, lumbar region (principal); M43.17 Spondylolisthesis, lumbosacral region
CPT/HCPCS: 72100